=== PATIENT | female | born 1965 | race African-American/Black ===

== ENCOUNTER 2019-05-07 12:14 | Inpatient (IN) | payer OTHER ==
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
[2019-05-07 13:45] LABS: BASO % 0.9 % (0-2.0); EOS % 4.5 % (0-4.5); HEMATOCRIT 28.1 % (32.4-45.2); HEMOGLOBIN 8.9 GM/dL (10.7-15.3); LYMPH % 16.7 % (8-40); MCH 21.6 pg (25.7-33.7); MCHC 31.7 g/dl (32.0-36.0); MEAN CELL VOLUME 68.3 fl (80-96); MEAN PLT VOLUME 7.8 fl (7.5-11.1); MONO % 6.9 % (3.8-10.2); PLATELET COUNT 386 K/MM3 (134-434); RBC 4.12 M/mm3 (3.60-5.2); RDW 17.5 % (11.6-15.6); WHITE BLOOD COUNT 8.9 K/mm3 (4.0-10.0)
[2019-05-07] MEDS ORDERED: VANCOMYCIN 1 GM in D5W (PRE-DOCKED) 1,000 MG/250 ML IVPB ONE (13:55)
[2019-05-07] MEDS ORDERED: ACETAMINOPHEN 1000 MG/100 ML VIAL (NON FORMULARY) IVPB ONE (13:55)
[2019-05-07] MEDS ORDERED: ACETAMINOPHEN INJECTION 100 ML IVPB ONE (14:00)
[2019-05-07] MEDS ORDERED: PIPERACILLIN/TAZOB 4.5 GM 4.5 GM/100 ML BAG IVPB ONE (14:01)
[2019-05-07] MEDS ORDERED: VANCOMYCIN 1 GRAM (PRE-DOCKED) 1,000 MG/250 ML BAG IVPB ONE (14:01)
--- NOTE | 2019-05-07 14:08 | PDOC ---
Documentation entered by Tina Soliz SCRIBE, acting as scribe for Ashley Thompson MD. Ashley Thompson MD: This documentation has been prepared by the Heydi huang Nirvannie, SCRIBE, under my direction and personally reviewed by me in its entirety. I confirm that the documentation accurately reflects all work, treatment, procedures, and medical decision making performed by me. Attending Attestation - Resident Resident Name: Michelle West - ED Attending Attestation I have performed the following: I have examined & evaluated the patient, The case was reviewed & discussed with the resident, I agree w/resident's findings & plan, Exceptions are as noted - HPI HPI: 05/07/19 13:50 Agree with resident HPI - Physicial Exam PE: 05/07/19 13:50 Agree with resident exam - Medical Decision Making 05/07/19 13:50 53-year-old female with chronic sacral/gluteal wounds presents the emergency department for admission for IV antibiotics. Patient was found to multiple drug -resistant organisms on her wound cultures. She does not have any systemic signs of infection at this time. We will cover the patient empirically with vancomycin and Zosyn. Per EMR patient has a penicillin allergy, however patient states she was told she had an allergy in childhood but, she has taken ampicillin safely in the past without any reaction. Anticipate admission Heart Score/ECG Review #1 05/07/19 14:05 Twelve-lead EKG was performed and reviewed by me. Normal sinus rhythm, rate 69. Normal axis. No ST elevations. T wave inversions in 3 and V3 with T wave flattening diffusely otherwise.Unable to access previous EKG in our system to compare.
[2019-05-07 14:12] LABS: ANISOCYTOSIS 2+; MACROCYTOSIS 0; PLATELET ESTIMATE NORMAL
[2019-05-07 14:23] LABS: ALBUMIN 2.4 g/dl (3.4-5.0); BILIRUBIN,TOTAL 0.1 mg/dL (0.2-1); CALCIUM 8.7 mg/dL (8.5-10.1); CREATININE 0.5 mg/dL (0.55-1.3); POTASSIUM 4.3 mmol/L (3.5-5.1); TOT PROT 7.4 g/dl (6.4-8.2)
[2019-05-07] MEDS ORDERED: PIPERACILLIN/TAZOB 4.5 GM 4.5 GM in DEXTROSE 5%-WATER 100 ML IVPB SCH (15:00)
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
[2019-05-07] MEDS ORDERED: HYDROmorphone HCL 2 MG TABLET PO PRN (16:38)
[2019-05-07 20:12] VITALS: BMI 34.2
[2019-05-07] MEDS: OXYBUTYNIN CHLORIDE 5 MG TABLET PO SCH (21:10)
[2019-05-08] MEDS ORDERED: diphenhydrAMINE HCL 25 MG CAPSULE (FP) PO PRN (08:28)
--- NOTE | 2019-05-08 08:32 | PN ---
Progress Note (short form) - Note Progress Note: Vital Signs Period Temp Pulse Resp BP Sys/Paul Pulse Ox Last 24 Hr 98.1 F-100.1 F 62-82 14-20 93-113/50-58 96-100 s1s2 rrr lungs cta abd soft non tender large stage 4 ischial decubitus on right, clean with no discharge stage 3 decubitus on left side several skin strippings over gluteal areas due to tape awaiting ID evaluation regarding abx continue maintenance posaconazole for amelia glabrata infection gi/dvt prophylaxis will need PICC, has minimal iv access Problem List - Problems (1) Decubitus ulcer, stage 4 with infection Code(s): L89.94 - PRESSURE ULCER OF UNSPECIFIED SITE, STAGE 4; L08.9 - LOCAL INFECTION OF THE SKIN AND SUBCUTANEOUS TISSUE, UNSP (2) Paraplegia Code(s): G82.20 - PARAPLEGIA, UNSPECIFIED
[2019-05-08 08:53] LABS: BASO % 0.5 % (0-2.0); EOS % 4.8 % (0-4.5); HEMATOCRIT 26.6 % (32.4-45.2); HEMOGLOBIN 8.5 GM/dL (10.7-15.3); LYMPH % 21.7 % (8-40); MCH 21.9 pg (25.7-33.7); MEAN CELL VOLUME 68.4 fl (80-96); MEAN PLT VOLUME 7.5 fl (7.5-11.1); PLATELET COUNT 404 K/MM3 (134-434); RBC 3.89 M/mm3 (3.60-5.2); RDW 17.6 % (11.6-15.6); WHITE BLOOD COUNT 6.6 K/mm3 (4.0-10.0)
[2019-05-08 09:34] LABS: ALBUMIN 2.3 g/dl (3.4-5.0); BILIRUBIN,TOTAL 0.2 mg/dL (0.2-1); BLOOD UREA NITROGEN 9.5 mg/dL (7-18); CALCIUM 8.7 mg/dL (8.5-10.1); CREATININE 0.4 mg/dL (0.55-1.3); POTASSIUM 4.1 mmol/L (3.5-5.1)
[2019-05-08] MEDS: ENOXAPARIN NA (PORCINE) 40 MG/0.4 ML DISP.SYRIN SQ SCH (09:41)
[2019-05-08] MEDS: ASCORBIC ACID 500 MG TABLET (FP) PO SCH (09:41)
[2019-05-08] MEDS: FERROUS SO4 325 MG TABLET (FP) PO SCH (09:41)
[2019-05-08] MEDS: OXYBUTYNIN CHLORIDE 5 MG TABLET PO SCH ×2 (09:41→21:11)
[2019-05-08] MEDS: FAMOTIDINE 20 MG TABLET PO SCH (09:41)
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
[2019-05-08] MEDS ORDERED: DEXTROSE 5%-WATER - 50 ML IVPB ONE ×2 (10:45→17:23)
[2019-05-08] MEDS ORDERED: PIPERACILLIN/TAZOBACTAM 3.375 GM VIAL IVPB ONE ×2 (10:45→17:23)
[2019-05-08] MEDS: PIPERACILLIN/TAZOB 3.375 GM 3.375 GM in DEXTROSE 5%-WATER - 50 ML IVPB SCH ×2 (10:59→17:31)
[2019-05-08 11:57] LABS: ERYTHROCYTE SEDIMENTATION RATE 108 mm/hr (0-30)
--- NOTE | 2019-05-08 13:21 | EKG ---
Test Reason : Blood Pressure : / mmHG Vent. Rate : 069 BPM Atrial Rate : 069 BPM P-R Int : 140 ms QRS Dur : 080 ms QT Int : 364 ms P-R-T Axes : 047 -01 007 degrees QTc Int : 390 ms NORMAL SINUS RHYTHM CANNOT RULE OUT INFERIOR INFARCT , AGE UNDETERMINED ABNORMAL ECG Confirmed by JENIFER GARRISON MD ([id number]) on 05/08/2019 1:21:10 PM Referred By: Confirmed By:JENIFER GARRISON MD
[2019-05-08] MEDS: VANCOMYCIN HCL 1,500 MG in DEXTROSE 5%-WATER - 500 ML IVPB SCH (14:05)
[2019-05-08] MEDS: AMINO ACIDS/PROTEIN HYDROLYS 30 ML LIQUID.PKT PO SCH (14:05)
[2019-05-08] MEDS: POTASSIUM CHLORIDE ORAL LIQUID 20 MEQ/15 ML PO SCH (21:11)
[2019-05-09] MEDS ORDERED: PIPERACILLIN/TAZOBACTAM 3.375 GM VIAL IVPB ONE ×3 (00:55→17:08)
[2019-05-09] MEDS ORDERED: DEXTROSE 5%-WATER - 50 ML IVPB ONE ×3 (00:56→17:08)
[2019-05-09] MEDS: PIPERACILLIN/TAZOB 3.375 GM 3.375 GM in DEXTROSE 5%-WATER - 50 ML IVPB SCH ×3 (01:12→17:15)
[2019-05-09] MEDS ORDERED: PT OWN MED DRAWER 7, Y5N ONE ×2 (08:36→12:06)
[2019-05-09] MEDS: POSACONAZOLE PO SCH (08:39)
--- NOTE | 2019-05-09 09:19 | PN ---
Progress Note (short form) - Note Progress Note: Vital Signs Period Temp Pulse Resp BP Sys/Paul Pulse Ox Last 24 Hr 98.2 F-99.4 F 57-80 18-20 112-129/62-72 s1s2 rrr lungs cta abd soft non tender large stage 4 ischial decubitus on right, clean with no discharge stage 3 decubitus on left side several skin strippings over gluteal areas due to tape Active Medications Acetaminophen (Tylenol -) 650 mg PO Q6H PRN PRN Reason: FEVER Amino Acids (Prosource No Carb Liquid Pkt) 30 ml PO DAILY [facility] Last Admin: 05/08/19 14:05 Dose: 30 ml Ascorbic Acid (Vitamin C -) 500 mg PO DAILY [facility] Last Admin: 05/08/19 09:41 Dose: 500 mg Diphenhydramine HCl (Benadryl -) 25 mg PO Q6H PRN PRN Reason: FOR ITCHING Last Admin: 05/08/19 09:04 Dose: 25 mg Enoxaparin Sodium (Lovenox -) 40 mg SQ DAILY [facility] Last Admin: 05/08/19 09:41 Dose: 40 mg Famotidine (Pepcid -) 20 mg PO DAILY [facility] Last Admin: 05/08/19 09:41 Dose: 20 mg Ferrous Sulfate (Feosol -) 325 mg PO DAILY [facility] Last Admin: 05/08/19 09:41 Dose: 325 mg Hydromorphone HCl (Dilaudid -) 2 mg PO Q6H PRN PRN Reason: PAIN LEVEL 7 - 10 Last Admin: 05/07/19 21:19 Dose: 2 mg Vancomycin HCl 1,500 mg/ (Dextrose) 500 mls @ 250 mls/hr IVPB Q24H [facility]; Protocol Last Admin: 05/08/19 14:05 Dose: 250 mls/hr Piperacillin Sod/Tazobactam (Sod 3.375 gm/ Dextrose) 50 mls @ 100 mls/hr IVPB Q8H-IV [facility]; Protocol Last Admin: 05/09/19 01:12 Dose: 100 mls/hr (Posaconazole 120 Mg )Patient's Own Medication (Non- Formulary) 120 mg PO DAILY @0800 [facility] Last Admin: 05/09/19 08:39 Dose: 120 mg Oxybutynin Chloride (Ditropan -) 5 mg PO BID [facility] Last Admin: 11/22/19 21:11 Dose: 5 mg Potassium Chloride (Potassium Chloride Oral Liquid) 20 meq PO BID [facility] Last Admin: 05/08/19 21:11 Dose: 20 meq consult appreciated iv abx [id number] planned for now offers no complaints continue wound care will get plastic surgical evaluation Problem List - Problems (1) Decubitus ulcer, stage 4 with infection Code(s): L89.94 - PRESSURE ULCER OF UNSPECIFIED SITE, STAGE 4; L08.9 - LOCAL INFECTION OF THE SKIN AND SUBCUTANEOUS TISSUE, UNSP (2) Paraplegia Code(s): G82.20 - PARAPLEGIA, UNSPECIFIED
[2019-05-09] MEDS: POTASSIUM CHLORIDE ORAL LIQUID 20 MEQ/15 ML PO SCH ×2 (10:12→21:54)
[2019-05-09] MEDS: FAMOTIDINE 20 MG TABLET PO SCH (10:12)
[2019-05-09] MEDS: FERROUS SO4 325 MG TABLET (FP) PO SCH (10:12)
[2019-05-09] MEDS: OXYBUTYNIN CHLORIDE 5 MG TABLET PO SCH ×2 (10:12→21:54)
[2019-05-09] MEDS: ASCORBIC ACID 500 MG TABLET (FP) PO SCH (10:12)
[2019-05-09] MEDS: ENOXAPARIN NA (PORCINE) 40 MG/0.4 ML DISP.SYRIN SQ SCH (10:12)
[2019-05-09] MEDS: AMINO ACIDS/PROTEIN HYDROLYS 30 ML LIQUID.PKT PO SCH (10:12)
[2019-05-09] MEDS: VANCOMYCIN HCL 1,500 MG in DEXTROSE 5%-WATER - 500 ML IVPB SCH (12:13)
--- NOTE | 2019-05-09 18:05 | PN ---
Progress Note, Physician History of Present Illness: Pt is alert and fully responsive. No rash noted on Zosyn. Has occasional generalized tingling sensation but states it started a couple of weekss ago. Has no specific complaints and is afebrile. - Current Medication List Current Medications: Active Medications Acetaminophen (Tylenol -) 650 mg PO Q6H PRN PRN Reason: FEVER Amino Acids (Prosource No Carb Liquid Pkt) 30 ml PO DAILY [facility] Last Admin: 05/09/19 10:12 Dose: 30 ml Ascorbic Acid (Vitamin C -) 500 mg PO DAILY [facility] Last Admin: 05/09/19 10:12 Dose: 500 mg Diphenhydramine HCl (Benadryl -) 25 mg PO Q6H PRN PRN Reason: FOR ITCHING Last Admin: 05/08/19 09:04 Dose: 25 mg Enoxaparin Sodium (Lovenox -) 40 mg SQ DAILY [facility] Last Admin: 05/09/19 10:12 Dose: 40 mg Famotidine (Pepcid -) 20 mg PO DAILY [facility] Last Admin: 05/09/19 10:12 Dose: 20 mg Ferrous Sulfate (Feosol -) 325 mg PO DAILY [facility] Last Admin: 05/09/19 10:12 Dose: 325 mg Hydromorphone HCl (Dilaudid -) 2 mg PO Q6H PRN PRN Reason: PAIN LEVEL 7 - 10 Last Admin: 05/07/19 21:19 Dose: 2 mg Vancomycin HCl 1,500 mg/ (Dextrose) 500 mls @ 250 mls/hr IVPB Q24H [facility]; Protocol Last Admin: 05/09/19 12:13 Dose: 250 mls/hr Piperacillin Sod/Tazobactam (Sod 3.375 gm/ Dextrose) 50 mls @ 100 mls/hr IVPB Q8H-IV [facility]; Protocol Last Admin: 05/09/19 17:15 Dose: 100 mls/hr (Posaconazole 120 Mg )Patient's Own Medication (Non- Formulary) 120 mg PO DAILY @0800 [facility] Last Admin: 05/09/19 08:39 Dose: 120 mg Oxybutynin Chloride (Ditropan -) 5 mg PO BID [facility] Last Admin: 05/09/19 10:12 Dose: 5 mg Potassium Chloride (Potassium Chloride Oral Liquid) 20 meq PO BID [facility] Last Admin: 05/09/19 10:12 Dose: 20 meq - Objective Vital Signs: Vital Signs Temperature 98.4 F 05/09/19 08:00 Pulse Rate 65 05/09/19 08:00 Respiratory Rate 18 05/09/19 08:00 Blood Pressure 110/60 05/09/19 08:00 O2 Sat by Pulse Oximetry (%) 98 05/08/19 09:00 Constitutional: Yes: No Distress, Calm Eyes: Yes: Conjunctiva Clear Cardiovascular: Yes: Tachycardia Respiratory: Yes: CTA Bilaterally Gastrointestinal: Yes: Normal Bowel Sounds, Soft Genitourinary: Yes: Sharp Present Wound/Incision: Yes: Dressing Dry and Intact (b/l ischial - St IV on Rt, St III on Lt) Neurological: Yes: Alert, Oriented, Other (paraplegia) Labs: CBC, BMP 05/08/19 07:50 05/08/19 07:50 Microbiology 05/07/19 13:55 Blood - Peripheral Venous Blood Culture - Preliminary NO GROWTH OBTAINED AFTER 48 HOURS, INCUBATION TO CONTINUE FOR 3 DAYS. 05/07/19 13:30 Blood - Peripheral Venous Blood Culture - Preliminary NO GROWTH OBTAINED AFTER 48 HOURS, INCUBATION TO CONTINUE FOR 3 DAYS. Problem List - Problems (1) Decubitus ulcer, stage 4 with infection Code(s): L89.94 - PRESSURE ULCER OF UNSPECIFIED SITE, STAGE 4; L08.9 - LOCAL INFECTION OF THE SKIN AND SUBCUTANEOUS TISSUE, UNSP (2) Paraplegia Code(s): G82.20 - PARAPLEGIA, UNSPECIFIED Assessment/Plan B/L ischial DU infection Paraplegia Hx of Spinal abscess s/p hardware removal, fusion Hx of Fungemia -- recent wound cultures reviewed -- continue Zosyn/Vancomycin for now, continue monitor for signs of allergic reaction with Zosyn -- Vancomycin trough prior to 4th dose, monitor renal function -- Plastics eval for possible graft -- needs offloading, continue wound care
[2019-05-10] MEDS ORDERED: PIPERACILLIN/TAZOBACTAM 3.375 GM VIAL IVPB ONE ×3 (01:20→17:29)
[2019-05-10] MEDS ORDERED: DEXTROSE 5%-WATER - 50 ML IVPB ONE ×3 (01:21→17:29)
[2019-05-10] MEDS: PIPERACILLIN/TAZOB 3.375 GM 3.375 GM in DEXTROSE 5%-WATER - 50 ML IVPB SCH ×3 (01:45→17:33)
--- NOTE | 2019-05-10 09:25 | PN ---
Progress Note (short form) - Note Progress Note: CBC, BMP 05/08/19 07:50 05/08/19 07:50 Vital Signs Period Temp Pulse Resp BP Sys/Paul Pulse Ox Last 24 Hr 97.8 F-98.1 F 60-78 17-20 92-135/48-75 98 s1s2 rrr lungs cta abd soft non tender large stage 4 ischial decubitus on right, clean with no discharge stage 3 decubitus on left side several skin strippings over gluteal areas due to tape Active Medications Acetaminophen (Tylenol -) 650 mg PO Q6H PRN PRN Reason: FEVER Amino Acids (Prosource No Carb Liquid Pkt) 30 ml PO DAILY [facility] Last Admin: 05/09/19 10:12 Dose: 30 ml Ascorbic Acid (Vitamin C -) 500 mg PO DAILY [facility] Last Admin: 05/09/19 10:12 Dose: 500 mg Collagenase (Santyl -) 1 applic TP DAILY [facility]; Protocol Diphenhydramine HCl (Benadryl -) 25 mg PO Q6H PRN PRN Reason: FOR ITCHING Last Admin: 05/08/19 09:04 Dose: 25 mg Enoxaparin Sodium (Lovenox -) 40 mg SQ DAILY [facility] Last Admin: 05/09/19 10:12 Dose: 40 mg Famotidine (Pepcid -) 20 mg PO DAILY [facility] Last Admin: 05/09/19 10:12 Dose: 20 mg Ferrous Sulfate (Feosol -) 325 mg PO DAILY [facility] Last Admin: 05/09/19 10:12 Dose: 325 mg Hydromorphone HCl (Dilaudid -) 2 mg PO Q6H PRN PRN Reason: PAIN LEVEL 7 - 10 Last Admin: 05/07/19 21:19 Dose: 2 mg Vancomycin HCl 1,500 mg/ (Dextrose) 500 mls @ 250 mls/hr IVPB Q24H [facility]; Protocol Last Admin: 05/09/19 12:13 Dose: 250 mls/hr Piperacillin Sod/Tazobactam (Sod 3.375 gm/ Dextrose) 50 mls @ 100 mls/hr IVPB Q8H-IV [facility]; Protocol Last Admin: 05/10/19 01:45 Dose: 100 mls/hr (Posaconazole 120 Mg )Patient's Own Medication (Non- Formulary) 120 mg PO DAILY @0800 [facility] Last Admin: 05/09/19 08:39 Dose: 120 mg Oxybutynin Chloride (Ditropan -) 5 mg PO BID [facility] Last Admin: 05/09/19 21:54 Dose: 5 mg Potassium Chloride (Potassium Chloride Oral Liquid) 20 meq PO BID [facility] Last Admin: 05/09/19 21:54 Dose: 20 meq right stage 4 gluteal decubitus with acinetobacter and MRSA HTN h/o cabdida glabrata bacteremia h/o PE consult appreciated iv abx [id number] planned for now offers no complaints continue wound care will get plastic surgical evaluation Problem List - Problems (1) Decubitus ulcer, stage 4 with infection Code(s): L89.94 - PRESSURE ULCER OF UNSPECIFIED SITE, STAGE 4; L08.9 - LOCAL INFECTION OF THE SKIN AND SUBCUTANEOUS TISSUE, UNSP (2) Paraplegia Code(s): G82.20 - PARAPLEGIA, UNSPECIFIED
[2019-05-10] MEDS ORDERED: PT OWN MED DRAWER 7, Y5N ONE ×2 (09:39→14:15)
[2019-05-10] MEDS: OXYBUTYNIN CHLORIDE 5 MG TABLET PO SCH ×2 (09:52→21:51)
[2019-05-10] MEDS: FERROUS SO4 325 MG TABLET (FP) PO SCH (09:52)
[2019-05-10] MEDS: FAMOTIDINE 20 MG TABLET PO SCH (09:52)
[2019-05-10] MEDS: POTASSIUM CHLORIDE ORAL LIQUID 20 MEQ/15 ML PO SCH ×2 (09:52→21:51)
[2019-05-10] MEDS: AMINO ACIDS/PROTEIN HYDROLYS 30 ML LIQUID.PKT PO SCH (09:52)
[2019-05-10] MEDS: ASCORBIC ACID 500 MG TABLET (FP) PO SCH (09:52)
[2019-05-10] MEDS: COLLAGENASE CLOSTRIDIUM HIST. 30 GRAMS TUBE TP SCH (09:52)
[2019-05-10] MEDS: ENOXAPARIN NA (PORCINE) 40 MG/0.4 ML DISP.SYRIN SQ SCH (09:52)
[2019-05-10] MEDS: POSACONAZOLE PO SCH (09:53)
[2019-05-10] MEDS: VANCOMYCIN HCL 1,500 MG in DEXTROSE 5%-WATER - 500 ML IVPB SCH (14:20)
[2019-05-10] MEDS: ACETAMINOPHEN 325 MG TABLET (FP) PO PRN (17:39)
--- NOTE | 2019-05-10 19:22 | PN ---
Progress Note, Physician History of Present Illness: Pt states she feels well. Tolerating antibiotics, no rash or SOB. Remains afebrile. - Current Medication List Current Medications: Active Medications Acetaminophen (Tylenol -) 650 mg PO Q6H PRN PRN Reason: FEVER Last Admin: 05/10/19 17:39 Dose: 650 mg Amino Acids (Prosource No Carb Liquid Pkt) 30 ml PO DAILY [facility] Last Admin: 05/10/19 09:52 Dose: 30 ml Ascorbic Acid (Vitamin C -) 500 mg PO DAILY [facility] Last Admin: 05/10/19 09:52 Dose: 500 mg Collagenase (Santyl -) 1 applic TP DAILY [facility]; Protocol Last Admin: 05/10/19 09:52 Dose: 1 applic Diphenhydramine HCl (Benadryl -) 25 mg PO Q6H PRN PRN Reason: FOR ITCHING Last Admin: 05/08/19 09:04 Dose: 25 mg Enoxaparin Sodium (Lovenox -) 40 mg SQ DAILY [facility] Last Admin: 05/10/19 09:52 Dose: 40 mg Famotidine (Pepcid -) 20 mg PO DAILY [facility] Last Admin: 05/10/19 09:52 Dose: 20 mg Ferrous Sulfate (Feosol -) 325 mg PO DAILY [facility] Last Admin: 05/10/19 09:52 Dose: 325 mg Hydromorphone HCl (Dilaudid -) 2 mg PO Q6H PRN PRN Reason: PAIN LEVEL 7 - 10 Last Admin: 05/07/19 21:19 Dose: 2 mg Vancomycin HCl 1,500 mg/ (Dextrose) 500 mls @ 250 mls/hr IVPB Q24H [facility]; Protocol Last Admin: 05/10/19 14:20 Dose: 250 mls/hr Piperacillin Sod/Tazobactam (Sod 3.375 gm/ Dextrose) 50 mls @ 100 mls/hr IVPB Q8H-IV [facility]; Protocol Last Admin: 05/10/19 17:33 Dose: 100 mls/hr (Posaconazole 120 Mg )Patient's Own Medication (Non- Formulary) 120 mg PO DAILY @0800 [facility] Last Admin: 05/10/19 09:53 Dose: 120 mg Oxybutynin Chloride (Ditropan -) 5 mg PO BID [facility] Last Admin: 05/10/19 09:52 Dose: 5 mg Potassium Chloride (Potassium Chloride Oral Liquid) 20 meq PO BID [facility] Last Admin: 05/10/19 09:52 Dose: 20 meq - Objective Vital Signs: Vital Signs Temperature 98.3 F 05/10/19 18:52 Pulse Rate 69 05/10/19 18:52 Respiratory Rate 20 05/10/19 18:52 Blood Pressure 109/71 05/10/19 18:52 O2 Sat by Pulse Oximetry (%) 98 05/10/19 09:00 Constitutional: Yes: No Distress, Calm Cardiovascular: Yes: Regular Rate and Rhythm Respiratory: Yes: Regular Gastrointestinal: Yes: Normal Bowel Sounds, Soft Extremities: Yes: WNL Wound/Incision: Yes: Dressing Dry and Intact Neurological: Yes: Alert, Oriented Labs: CBC, BMP 05/08/19 07:50 05/08/19 07:50 Microbiology 05/07/19 13:55 Blood - Peripheral Venous Blood Culture - Preliminary NO GROWTH OBTAINED AFTER 72 HOURS, INCUBATION TO CONTINUE FOR 2 DAYS. 05/07/19 13:30 Blood - Peripheral Venous Blood Culture - Preliminary NO GROWTH OBTAINED AFTER 72 HOURS, INCUBATION TO CONTINUE FOR 2 DAYS. Problem List - Problems (1) Decubitus ulcer, stage 4 with infection Code(s): L89.94 - PRESSURE ULCER OF UNSPECIFIED SITE, STAGE 4; L08.9 - LOCAL INFECTION OF THE SKIN AND SUBCUTANEOUS TISSUE, UNSP (2) Paraplegia Code(s): G82.20 - PARAPLEGIA, UNSPECIFIED Assessment/Plan B/L ischial DU infection Paraplegia Hx of Spinal abscess s/p hardware removal, fusion Hx of Fungemia -- wound cultures: MRSA, E.faecalis, Proteus, Acinetobacter -- continue Zosyn/Vancomycin for now -- Vancomycin trough prior to 4th dose, monitor renal function -- Plastics eval pending -- continue wound care, turning
[2019-05-11] MEDS ORDERED: PIPERACILLIN/TAZOBACTAM 3.375 GM VIAL IVPB ONE ×3 (01:09→15:40)
[2019-05-11] MEDS ORDERED: DEXTROSE 5%-WATER - 50 ML IVPB ONE ×3 (01:10→15:40)
[2019-05-11] MEDS: PIPERACILLIN/TAZOB 3.375 GM 3.375 GM in DEXTROSE 5%-WATER - 50 ML IVPB SCH ×3 (01:29→18:14)
[2019-05-11] MEDS: ACETAMINOPHEN 325 MG TABLET (FP) PO PRN ×2 (06:19→18:19)
--- NOTE | 2019-05-11 08:02 | PN ---
Progress Note (short form) - Note Progress Note: CBC, BMP 05/08/19 07:50 05/08/19 07:50 Vital Signs Period Temp Pulse Resp BP Sys/Paul Pulse Ox Last 24 Hr 98.0 F-100.4 F 68-83 18-20 106-130/52-74 98-98 s1s2 rrr lungs cta abd soft non tender large stage 4 ischial decubitus on right, clean with no discharge stage 3 decubitus on left side several skin strippings over gluteal areas due to tape right stage 4 gluteal decubitus with acinetobacter and MRSA HTN h/o cabdida glabrata bacteremia h/o PE consult appreciated iv abx [id number] planned for now vanco through and labs tomorrow offers no complaints continue wound care will get plastic surgical evaluation Problem List - Problems (1) Decubitus ulcer, stage 4 with infection Code(s): L89.94 - PRESSURE ULCER OF UNSPECIFIED SITE, STAGE 4; L08.9 - LOCAL INFECTION OF THE SKIN AND SUBCUTANEOUS TISSUE, UNSP (2) Paraplegia Code(s): G82.20 - PARAPLEGIA, UNSPECIFIED
[2019-05-11] MEDS: FERROUS SO4 325 MG TABLET (FP) PO SCH (10:50)
[2019-05-11] MEDS: FAMOTIDINE 20 MG TABLET PO SCH (10:50)
[2019-05-11] MEDS: OXYBUTYNIN CHLORIDE 5 MG TABLET PO SCH ×2 (10:50→21:47)
[2019-05-11] MEDS: ASCORBIC ACID 500 MG TABLET (FP) PO SCH (10:50)
[2019-05-11] MEDS: POTASSIUM CHLORIDE ORAL LIQUID 20 MEQ/15 ML PO SCH ×2 (10:51→21:47)
[2019-05-11] MEDS: ENOXAPARIN NA (PORCINE) 40 MG/0.4 ML DISP.SYRIN SQ SCH (10:51)
[2019-05-11] MEDS: POSACONAZOLE PO SCH (10:53)
[2019-05-11] MEDS: AMINO ACIDS/PROTEIN HYDROLYS 30 ML LIQUID.PKT PO SCH (10:53)
[2019-05-11] MEDS: COLLAGENASE CLOSTRIDIUM HIST. 30 GRAMS TUBE TP SCH (10:53)
--- NOTE | 2019-05-11 13:18 | PN ---
Progress Note, Physician History of Present Illness: stable no complaints awaiting plastics to see the patient - Current Medication List Current Medications: Active Medications Acetaminophen (Tylenol -) 650 mg PO Q6H PRN PRN Reason: FEVER Last Admin: 05/11/19 06:19 Dose: 650 mg Amino Acids (Prosource No Carb Liquid Pkt) 30 ml PO DAILY [facility] Last Admin: 05/11/19 10:53 Dose: 30 ml Ascorbic Acid (Vitamin C -) 500 mg PO DAILY [facility] Last Admin: 05/11/19 10:50 Dose: 500 mg Collagenase (Santyl -) 1 applic TP DAILY [facility]; Protocol Last Admin: 05/11/19 10:53 Dose: 1 applic Diphenhydramine HCl (Benadryl -) 25 mg PO Q6H PRN PRN Reason: FOR ITCHING Last Admin: 05/08/19 09:04 Dose: 25 mg Enoxaparin Sodium (Lovenox -) 40 mg SQ DAILY [facility] Last Admin: 05/11/19 10:51 Dose: 40 mg Famotidine (Pepcid -) 20 mg PO DAILY [facility] Last Admin: 05/11/19 10:50 Dose: 20 mg Ferrous Sulfate (Feosol -) 325 mg PO DAILY [facility] Last Admin: 05/11/19 10:50 Dose: 325 mg Hydromorphone HCl (Dilaudid -) 2 mg PO Q6H PRN PRN Reason: PAIN LEVEL 7 - 10 Last Admin: 05/07/19 21:19 Dose: 2 mg Vancomycin HCl 1,500 mg/ (Dextrose) 500 mls @ 250 mls/hr IVPB Q24H [facility]; Protocol Last Admin: 05/10/19 14:20 Dose: 250 mls/hr Piperacillin Sod/Tazobactam (Sod 3.375 gm/ Dextrose) 50 mls @ 100 mls/hr IVPB Q8H-IV [facility]; Protocol Last Admin: 05/11/19 10:54 Dose: 100 mls/hr (Posaconazole 120 Mg )Patient's Own Medication (Non- Formulary) 120 mg PO DAILY @0800 [facility] Last Admin: 05/11/19 10:53 Dose: 120 mg Oxybutynin Chloride (Ditropan -) 5 mg PO BID [facility] Last Admin: 05/11/19 10:50 Dose: 5 mg Potassium Chloride (Potassium Chloride Oral Liquid) 20 meq PO BID [facility] Last Admin: 05/11/19 10:51 Dose: 20 meq - Objective Vital Signs: Vital Signs Temperature 100.4 F H 05/11/19 06:00 Pulse Rate 79 05/11/19 06:00 Respiratory Rate 20 05/11/19 06:00 Blood Pressure 130/68 05/11/19 06:00 O2 Sat by Pulse Oximetry (%) 98 05/10/19 21:00 Constitutional: Yes: No Distress, Calm Cardiovascular: Yes: S1, S2 Respiratory: Yes: Regular, CTA Bilaterally Gastrointestinal: Yes: Normal Bowel Sounds, Soft Musculoskeletal: Yes: WNL Extremities: Yes: WNL Wound/Incision: Yes: Dressing Dry and Intact Neurological: Yes: Alert, Oriented Psychiatric: Yes: Alert, Oriented Labs: CBC, BMP 05/08/19 07:50 05/08/19 07:50 Assessment/Plan Problem List - Problems (1) Decubitus ulcer, stage 4 with infection Code(s): L89.94 - PRESSURE ULCER OF UNSPECIFIED SITE, STAGE 4; L08.9 - LOCAL INFECTION OF THE SKIN AND SUBCUTANEOUS TISSUE, UNSP (2) Paraplegia Code(s): G82.20 - PARAPLEGIA, UNSPECIFIED Assessment/Plan B/L ischial DU infection Paraplegia Hx of Spinal abscess s/p hardware removal, fusion Hx of Fungemia -- wound cultures: MRSA, E.faecalis, Proteus, Acinetobacter -- continue Zosyn/Vancomycin for now -- Vancomycin trough prior to 4th dose, monitor renal function -- Plastics eval pending -- continue wound care, turning
[2019-05-11] MEDS: VANCOMYCIN HCL 1,500 MG in DEXTROSE 5%-WATER - 500 ML IVPB SCH (14:57)
[2019-05-11] MEDS ORDERED: PT OWN MED DRAWER 7, Y5N ONE (18:04)
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
[2019-05-12] MEDS ORDERED: PIPERACILLIN/TAZOBACTAM 3.375 GM VIAL IVPB ONE ×3 (01:41→16:26)
[2019-05-12] MEDS ORDERED: DEXTROSE 5%-WATER - 50 ML IVPB ONE ×3 (01:42→16:26)
[2019-05-12] MEDS: PIPERACILLIN/TAZOB 3.375 GM 3.375 GM in DEXTROSE 5%-WATER - 50 ML IVPB SCH ×3 (02:05→17:19)
--- NOTE | 2019-05-12 08:35 | PN ---
Progress Note (short form) - Note Progress Note: s1s2 rrr lungs cta abd soft non tender large stage 4 ischial decubitus on right, clean with no discharge stage 4 decubitus on left side several skin strippings over gluteal areas due to tape right stage 4 ischial decubitus with acinetobacter and MRSA HTN h/o cabdida glabrata bacteremia h/o PE consult appreciated iv abx [id number] planned vanco through and labs today offers no complaints appreciated plastic surgical evaluation dc planning in am to snf to complete 2 weeks of iv abx Problem List - Problems (1) Decubitus ulcer, stage 4 with infection Code(s): L89.94 - PRESSURE ULCER OF UNSPECIFIED SITE, STAGE 4; L08.9 - LOCAL INFECTION OF THE SKIN AND SUBCUTANEOUS TISSUE, UNSP (2) Paraplegia Code(s): G82.20 - PARAPLEGIA, UNSPECIFIED
--- NOTE | 2019-05-12 08:37 | DS ---
Physical Examination Vital Signs: Vital Signs Temperature 99.1 F 05/12/19 05:00 Pulse Rate 92 H 05/12/19 05:00 Respiratory Rate 20 05/12/19 05:00 Blood Pressure 140/82 05/12/19 05:00 O2 Sat by Pulse Oximetry (%) 98 05/11/19 21:00 Constitutional: Yes: No Distress, Calm, Obese Eyes: Yes: Conjunctiva Clear, EOM Intact HENT: Yes: Normocephalic Neck: Yes: Trachea Midline Cardiovascular: Yes: Regular Rate and Rhythm Respiratory: Yes: CTA Bilaterally Gastrointestinal: Yes: Normal Bowel Sounds, Soft, Abdomen, Obese Edema: No Peripheral Pulses WNL: Yes Integumentary: Yes: Other (bilateral stage 4 decubiti, clean based, no discharge ) Neurological: Yes: Other (paraplegic) Psychiatric: Yes: WNL Labs: CBC, BMP 05/08/19 07:50 05/08/19 07:50 Discharge Summary Problems reviewed: Yes Reason For Visit: SOFT TISSUE INFECTION Current Active Problems Decubitus ulcer, stage 4 with infection (Acute) Paraplegia (Acute) Hospital Course: right stage 4 ischial decubitus with acinetobacter and MRSA skin infection HTN h/o cabdida glabrata bacteremia h/o PE h/o C.diff iv vanxo and zosyn [id number] planned to complete on May 22 vanco through and labs today appreciated plastic surgical evaluation-if patient is able to regain strength to offload, then will consider flap in future after completing abx course dc planning in am to snf to complete 2 weeks of iv abx Condition: Fair - Instructions Referrals: Courtney Howe MD [Primary Care Provider] - [facility]position[facility] - Home Medications Comprehensive Discharge Medication List: Active Medications Acetaminophen (Tylenol -) 650 mg PO Q6H PRN PRN Reason: FEVER Last Admin: 05/11/19 18:19 Dose: 650 mg Amino Acids (Prosource No Carb Liquid Pkt) 30 ml PO DAILY [facility] Last Admin: 05/11/19 10:53 Dose: 30 ml Ascorbic Acid (Vitamin C -) 500 mg PO DAILY [facility] Last Admin: 05/11/19 10:50 Dose: 500 mg Diphenhydramine HCl (Benadryl -) 25 mg PO Q6H PRN PRN Reason: FOR ITCHING Last Admin: 05/08/19 09:04 Dose: 25 mg Famotidine (Pepcid -) 20 mg PO DAILY [facility] Last Admin: 05/11/19 10:50 Dose: 20 mg Ferrous Sulfate (Feosol -) 325 mg PO DAILY [facility] Last Admin: 05/11/19 10:50 Dose: 325 mg Hydromorphone HCl (Dilaudid -) 2 mg PO Q6H PRN PRN Reason: PAIN LEVEL 7 - 10 Last Admin: 05/07/19 21:19 Dose: 2 mg Vancomycin HCl 1,500 mg/ (Dextrose) 500 mls @ 250 mls/hr IVPB Q24H [facility]; Protocol Last Admin: 05/11/19 14:57 Dose: 250 mls/hr Piperacillin Sod/Tazobactam (Sod 3.375 gm/ Dextrose) 50 mls @ 100 mls/hr IVPB Q8H-IV [facility]; Protocol Last Admin: 05/12/19 02:05 Dose: 100 mls/hr Mupirocin (Bactroban 2% Ointment -) 1 applic TP BID [facility] (Posaconazole 120 Mg )Patient's Own Medication (Non- Formulary) 120 mg PO DAILY @0800 [facility] Last Admin: 05/11/19 10:53 Dose: 120 mg Oxybutynin Chloride (Ditropan -) 5 mg PO BID [facility] Last Admin: 05/11/19 21:47 Dose: 5 mg Potassium Chloride (Potassium Chloride Oral Liquid) 20 meq PO BID [facility] Last Admin: 05/11/19 21:47 Dose: 20 meq Sodium Hypochlorite (Dakin's Solution 0.25% (Half-Strength) -) 1 applic TP DAILY [facility]
[2019-05-12] MEDS: ASCORBIC ACID 500 MG TABLET (FP) PO SCH (09:07)
[2019-05-12] MEDS: OXYBUTYNIN CHLORIDE 5 MG TABLET PO SCH ×2 (09:07→22:14)
[2019-05-12] MEDS: AMINO ACIDS/PROTEIN HYDROLYS 30 ML LIQUID.PKT PO SCH (09:07)
[2019-05-12] MEDS: POTASSIUM CHLORIDE ORAL LIQUID 20 MEQ/15 ML PO SCH ×2 (09:07→22:14)
[2019-05-12] MEDS: POSACONAZOLE PO SCH (09:07)
[2019-05-12] MEDS: FAMOTIDINE 20 MG TABLET PO SCH (09:07)
[2019-05-12] MEDS: FERROUS SO4 325 MG TABLET (FP) PO SCH (09:07)
--- NOTE | 2019-05-12 11:43 | PN ---
Progress Note, Physician - Current Medication List Current Medications: Active Medications Acetaminophen (Tylenol -) 650 mg PO Q6H PRN PRN Reason: FEVER Last Admin: 05/11/19 18:19 Dose: 650 mg Amino Acids (Prosource No Carb Liquid Pkt) 30 ml PO DAILY [facility] Last Admin: 05/12/19 09:07 Dose: 30 ml Ascorbic Acid (Vitamin C -) 500 mg PO DAILY [facility] Last Admin: 05/12/19 09:07 Dose: 500 mg Diphenhydramine HCl (Benadryl -) 25 mg PO Q6H PRN PRN Reason: FOR ITCHING Last Admin: 05/08/19 09:04 Dose: 25 mg Famotidine (Pepcid -) 20 mg PO DAILY [facility] Last Admin: 05/12/19 09:07 Dose: 20 mg Ferrous Sulfate (Feosol -) 325 mg PO DAILY [facility] Last Admin: 05/12/19 09:07 Dose: 325 mg Hydromorphone HCl (Dilaudid -) 2 mg PO Q6H PRN PRN Reason: PAIN LEVEL 7 - 10 Last Admin: 05/07/19 21:19 Dose: 2 mg Vancomycin HCl 1,500 mg/ (Dextrose) 500 mls @ 250 mls/hr IVPB Q24H [facility]; Protocol Last Admin: 05/11/19 14:57 Dose: 250 mls/hr Piperacillin Sod/Tazobactam (Sod 3.375 gm/ Dextrose) 50 mls @ 100 mls/hr IVPB Q8H-IV [facility]; Protocol Last Admin: 05/12/19 09:08 Dose: 100 mls/hr Mupirocin (Bactroban 2% Ointment -) 1 applic TP BID [facility] (Posaconazole 120 Mg )Patient's Own Medication (Non- Formulary) 120 mg PO DAILY @0800 [facility] Last Admin: 05/12/19 09:07 Dose: 120 mg Oxybutynin Chloride (Ditropan -) 5 mg PO BID [facility] Last Admin: 05/12/19 09:07 Dose: 5 mg Potassium Chloride (Potassium Chloride Oral Liquid) 20 meq PO BID [facility] Last Admin: 05/12/19 09:07 Dose: 20 meq Sodium Hypochlorite (Dakin's Solution 0.25% (Half-Strength) -) 1 applic TP DAILY [facility] - Objective Vital Signs: Vital Signs Temperature 99.1 F 05/12/19 05:00 Pulse Rate 92 H 05/12/19 05:00 Respiratory Rate 20 05/12/19 05:00 Blood Pressure 140/82 05/12/19 05:00 O2 Sat by Pulse Oximetry (%) 98 05/11/19 21:00 Labs: CBC, BMP 05/08/19 07:50 05/08/19 07:50
--- NOTE | 2019-05-12 12:04 | PN ---
Progress Note (short form) - Note Progress Note: Pt being seen and treated for her decubitus ulcer by Dr. Flynn. She does see Dr. Rocha in the wound clinic and was referred to the hospital for admission, positive wound cultures-MRSA. Spoke with Dr. Jenkins and care to be managed by Dr. Flynn for her ulcers. Consult for Dr. Sigala cancelled.
[2019-05-12 12:58] LABS: BASO % 0.5 % (0-2.0); EOS % 4.4 % (0-4.5); HEMATOCRIT 28.4 % (32.4-45.2); HEMOGLOBIN 8.9 GM/dL (10.7-15.3); LYMPH % 21.9 % (8-40); MCH 21.5 pg (25.7-33.7); MCHC 31.5 g/dl (32.0-36.0); MEAN CELL VOLUME 68.4 fl (80-96); MEAN PLT VOLUME 7.3 fl (7.5-11.1); MONO % 9.6 % (3.8-10.2); NEUT % 63.6 % (42.8-82.8); PLATELET COUNT 387 K/MM3 (134-434); RBC 4.16 M/mm3 (3.60-5.2); RDW 18.1 % (11.6-15.6); WHITE BLOOD COUNT 7.9 K/mm3 (4.0-10.0)
[2019-05-12] MEDS ORDERED: PT OWN MED DRAWER 7, Y5N ONE (12:59)
[2019-05-12 13:18] LABS: INR 1.28 (0.83-1.09); PROTHROMBIN TIME (PATIENT) 15.1 SEC (9.7-13.0)
[2019-05-12 13:31] LABS: ALBUMIN 2.5 g/dl (3.4-5.0); BILIRUBIN,TOTAL 0.4 mg/dL (0.2-1); BLOOD UREA NITROGEN 9.6 mg/dL (7-18); CALCIUM 8.8 mg/dL (8.5-10.1); CREATININE 0.5 mg/dL (0.55-1.3); POTASSIUM 4.3 mmol/L (3.5-5.1); TOT PROT 7.4 g/dl (6.4-8.2)
[2019-05-12] MEDS: VANCOMYCIN HCL 1,500 MG in DEXTROSE 5%-WATER - 500 ML IVPB SCH (13:37)
[2019-05-12] MEDS: MUPIROCIN 2% TOPICAL OINTMENT 22 GM TUBE TP SCH ×2 (13:43→22:14)
[2019-05-12] MEDS: SODIUM HYPOCHLORITE 0.25%- 473 ML BULK BOTTLE TP SCH (13:44)
[2019-05-12 13:59] LABS: ANISOCYTOSIS 2+; PLATELET ESTIMATE NORMAL
[2019-05-12] MEDS: ACETAMINOPHEN 325 MG TABLET (FP) PO PRN (16:49)
[2019-05-13] MEDS ORDERED: PIPERACILLIN/TAZOBACTAM 3.375 GM VIAL IVPB ONE ×2 (01:08→09:44)
[2019-05-13] MEDS ORDERED: DEXTROSE 5%-WATER - 50 ML IVPB ONE ×2 (01:09→09:44)
[2019-05-13] MEDS: PIPERACILLIN/TAZOB 3.375 GM 3.375 GM in DEXTROSE 5%-WATER - 50 ML IVPB SCH ×2 (02:09→09:51)
--- NOTE | 2019-05-13 08:24 | PN ---
Progress Note (short form) - Note Progress Note: Vital Signs Period Temp Pulse Resp BP Sys/Paul Pulse Ox Last 24 Hr 97.9 F-98.6 F 67-81 20-20 98-122/50-67 98-100 s1s2 rrr lungs cta abd soft non tender large stage 4 ischial decubitus on right, clean with no discharge stage 4 decubitus on left side several skin strippings over gluteal areas due to tape right stage 4 ischial decubitus with acinetobacter and MRSA HTN h/o cabdida glabrata bacteremia h/o PE consult appreciated iv abx [id number] planned offers no complaints appreciated plastic surgical evaluation dc planning today to snf to complete 2 weeks of iv abx PT/OT for upper body strengthening Problem List - Problems (1) Decubitus ulcer, stage 4 with infection Code(s): L89.94 - PRESSURE ULCER OF UNSPECIFIED SITE, STAGE 4; L08.9 - LOCAL INFECTION OF THE SKIN AND SUBCUTANEOUS TISSUE, UNSP (2) Paraplegia Code(s): G82.20 - PARAPLEGIA, UNSPECIFIED
[2019-05-13] MEDS ORDERED: PT OWN MED DRAWER 7, Y5N ONE (09:43)
[2019-05-13] MEDS: AMINO ACIDS/PROTEIN HYDROLYS 30 ML LIQUID.PKT PO SCH (09:51)
[2019-05-13] MEDS: FERROUS SO4 325 MG TABLET (FP) PO SCH (09:51)
[2019-05-13] MEDS: ASCORBIC ACID 500 MG TABLET (FP) PO SCH (09:51)
[2019-05-13] MEDS: FAMOTIDINE 20 MG TABLET PO SCH (09:51)
[2019-05-13] MEDS: POSACONAZOLE PO SCH (09:52)
[2019-05-13] MEDS: POTASSIUM CHLORIDE ORAL LIQUID 20 MEQ/15 ML PO SCH (09:52)
[2019-05-13] MEDS: OXYBUTYNIN CHLORIDE 5 MG TABLET PO SCH (09:52)
[2019-05-13] MEDS: SODIUM HYPOCHLORITE 0.25%- 473 ML BULK BOTTLE TP SCH (09:53)
[2019-05-13] MEDS: MUPIROCIN 2% TOPICAL OINTMENT 22 GM TUBE TP SCH (09:53)
--- NOTE | 2019-05-13 11:33 | PN ---
Progress Note, Physician - Current Medication List Current Medications: Active Medications Acetaminophen (Tylenol -) 650 mg PO Q6H PRN PRN Reason: FEVER Last Admin: 05/12/19 16:49 Dose: 650 mg Amino Acids (Prosource No Carb Liquid Pkt) 30 ml PO DAILY [facility] Last Admin: 05/13/19 09:51 Dose: 30 ml Ascorbic Acid (Vitamin C -) 500 mg PO DAILY [facility] Last Admin: 05/13/19 09:51 Dose: 500 mg Diphenhydramine HCl (Benadryl -) 25 mg PO Q6H PRN PRN Reason: FOR ITCHING Last Admin: 05/08/19 09:04 Dose: 25 mg Famotidine (Pepcid -) 20 mg PO DAILY [facility] Last Admin: 05/13/19 09:51 Dose: 20 mg Ferrous Sulfate (Feosol -) 325 mg PO DAILY [facility] Last Admin: 05/13/19 09:51 Dose: 325 mg Hydromorphone HCl (Dilaudid -) 2 mg PO Q6H PRN PRN Reason: PAIN LEVEL 7 - 10 Last Admin: 05/07/19 21:19 Dose: 2 mg Vancomycin HCl 1,500 mg/ (Dextrose) 500 mls @ 250 mls/hr IVPB Q24H [facility]; Protocol Last Admin: 05/12/19 13:37 Dose: 250 mls/hr Piperacillin Sod/Tazobactam (Sod 3.375 gm/ Dextrose) 50 mls @ 100 mls/hr IVPB Q8H-IV [facility]; Protocol Last Admin: 05/13/19 09:51 Dose: 100 mls/hr Mupirocin (Bactroban 2% Ointment -) 1 applic TP BID [facility] Last Admin: 05/13/19 09:53 Dose: 1 applic (Posaconazole 120 Mg )Patient's Own Medication (Non- Formulary) 120 mg PO DAILY @0800 [facility] Last Admin: 05/13/19 09:52 Dose: 120 mg Oxybutynin Chloride (Ditropan -) 5 mg PO BID [facility] Last Admin: 05/13/19 09:52 Dose: 5 mg Potassium Chloride (Potassium Chloride Oral Liquid) 20 meq PO BID [facility] Last Admin: 05/13/19 09:52 Dose: 20 meq Sodium Hypochlorite (Dakin's Solution 0.25% (Half-Strength) -) 1 applic TP DAILY [facility] Last Admin: 05/13/19 09:53 Dose: 1 applic - Objective Vital Signs: Vital Signs Temperature 98.1 F 05/13/19 06:00 Pulse Rate 81 05/13/19 06:00 Respiratory Rate 20 05/13/19 06:00 Blood Pressure 122/50 L 05/13/19 06:00 O2 Sat by Pulse Oximetry (%) 100 05/12/19 21:00 Labs: CBC, BMP 05/12/19 12:22 05/12/19 12:22 INR, PTT INR 1.28 (0.83-1.09) H 05/12/19 12:22
[2019-05-13 11:46] VITALS: BP 109/58; PULSE 67; TEMP 98.5
[2019-05-13] MEDS: VANCOMYCIN HCL 1,500 MG in DEXTROSE 5%-WATER - 500 ML IVPB SCH (12:02)
== END 2019-05-13 14:51 | DRG 593 ==
LOC: JER 12:14 → JERBED 14:00 → J8W 17:27
PROVIDERS: ADMIT Internal Medicine; ATTEND Internal Medicine
PROC: 02HV33Z Insertion of Infusion Device into Superior Vena Cava, Percutaneous Approach (ICD-10-PCS; principal; 2019-05-12)
DX: L89.214 Pressure ulcer of right hip, stage 4 (principal); G82.20 Paraplegia, unspecified; L89.323 Pressure ulcer of left buttock, stage 3; D64.9 Anemia, unspecified; E78.00 Pure hypercholesterolemia, unspecified; Z93.1 Gastrostomy status; A49.02 Methicillin resistant Staphylococcus aureus infection, unspecified site; I10 Essential (primary) hypertension; E66.9 Obesity, unspecified; Z68.34 Body mass index [BMI] 34.0-34.9, adult
CPT/HCPCS: 36415; 36569; 71045-TC-FY; 75820-TC-FY; 77001-TC-FY; 80053; 85025; 85610; 85651; 86140; 87040; 93005; 93010; 99283-25; C1751; G0463-25; G0480; J0131

== ENCOUNTER 2020-01-21 05:15 | Day surgery (SDC) | payer OTHER ==
[2020-01-20 14:16] VITALS: BMI 32.0
[2020-01-21 08:32] LABS: BASO % 0.6 % (0-2.0); EOS % 8.9 % (0-4.5); HEMATOCRIT 25.7 % (32.4-45.2); HEMOGLOBIN 7.9 GM/dL (10.7-15.3); LYMPH % 19.2 % (8-40); MCH 21.4 pg (25.7-33.7); MCHC 30.6 g/dl (32.0-36.0); MEAN CELL VOLUME 69.9 fl (80-96); MEAN PLT VOLUME 7.5 fl (7.5-11.1); MONO % 6.9 % (3.8-10.2); NEUT % 64.4 % (42.8-82.8); PLATELET COUNT 457 K/MM3 (134-434); RBC 3.68 M/mm3 (3.60-5.2); RDW 20.1 % (11.6-15.6); WHITE BLOOD COUNT 6.7 K/mm3 (4.0-10.0)
[2020-01-21 09:07] LABS: INR 1.13 (0.83-1.09); PROTHROMBIN TIME (PATIENT) 13.4 SEC (9.7-13.0)
[2020-01-21 12:39] VITALS: BP 133/72; PULSE 65; TEMP 97.9
--- NOTE | 2020-01-25 17:35 | PATH ---
Surgical Pathology Report Patient Name: BRAYDON LUTHER [facility]. Rec. #: [id number] /Age/Gender: 1965 (Age: 54) / F Account: [id number] Location: RADIOLOGY INTER Taken: 01/21/2020 Received: 01/21/2020 Reported: 01/25/2020 Physicians: Dakota Pro M.D. Specimen(s) Received SACRUM, BONE, EXPANSILE LESION, CT-GUIDED CORE BIOPSY Clinical History 54 year old female paraplegic with expansile lesion of sacrum Final Diagnosis SACRUM, BONE, EXPANSILE LESION, CT-GUIDED CORE BIOPSY: INFLAMED GRANULATION TISSUE WITH PATCHY ACUTE AND CHRONIC INFLAMMATION. SMALL AGGREGATE OF OSTEOCLAST GIANT CELLS WITH ASSOCIATED BONE AND CARTILAGE. NO CARCINOMA IDENTIFIED. Comment: Immunohistochemical stains performed and interpreted at [facility] show cytokeratin AE1/3 is negative. Overall findings favor a reactive process. Suggest clinical and radiologic correlation. Positive and negative controls (internal if applicable) show appropriate results. Electronically Signed Reyna Harden M.D. Gross Description Received in formalin labeled "bone biopsy," are 3 radford, cylindrical portions of bone ranging from 1.3-1.7 cm in length and averaging 0.1 cm in diameter. The specimens are submitted in toto in one cassette, following decalcification. 01/21/2020 [facility]01/21/2020
== END 2020-01-21 12:45 | disposition home or self-care (01) ==
LOC: JRADIR 05:15
PROVIDERS: ATTEND Internal Medicine
PROC: 0QB13ZX Excision of Sacrum, Percutaneous Approach, Diagnostic (ICD-10-PCS; principal; 2020-01-21)
DX: D16.8 Benign neoplasm of pelvic bones, sacrum and coccyx (principal)
CPT/HCPCS: 20220; 36415; 85025; 85610; 87070; 87075; 87102; 87116; 87205; 87206; 87210; 88305-TC; 88342-TC

== ENCOUNTER 2020-02-23 05:19 | Day surgery (SDC) | payer OTHER ==
[2020-02-19 17:42] VITALS: BMI 29.0
[2020-02-23 09:25] VITALS: TEMP 98
[2020-02-23 16:11] LABS: BF WBC & OTHER NUCLEATED CELLS 1539 /mm3
[2020-02-23 19:30] LABS: BODY FLUID MACROPHAGES 5 %
[2020-02-23 20:09] VITALS: BP 131/82; PULSE 95
--- NOTE | 2020-02-24 16:39 | PATH ---
Cytology Non-Gynecological Report Patient Name: BRAYDON LUTHER [facility]. Rec. #: [id number] /Age/Gender: 1965 (Age: 54) / F Account: [id number] Location: RADIOLOGY INTER Taken: 02/23/2020 Received: 02/23/2020 Reported: 02/24/2020 Physicians: Courtney Howe M.D. Specimen(s) Received A: LEFT PLEURAL FLUID B: LEFT PLEURAL FLUID Clinical History Pleural effusion, left side Final Diagnosis A-B. PLEURAL FLUID, LEFT, THORACENTESIS: SATISFACTORY FOR EVALUATION NEGATIVE FOR MALIGNANCY. RARE MESOTHELIAL CELLS, FEW LYMPHOCYTES, AND RED BLOOD CELLS PRESENT. Electronically Signed Reyna Harden M.D. Gross Description A. Approximately 800 cc of bloody fluid received fresh. One cytofunnel prepared and Pap stained. One cellblock prepared. B. Approximately 50 cc of bloody fluid received fixed in 50% alcohol. One cytofunnel prepared and Pap stained. One cellblock prepared.
[2020-02-25 14:10] LABS: BODY FLUID ALBUMIN 2.4 g/dL (Not Estab.)
== END 2020-02-23 15:05 | disposition home or self-care (01) ==
LOC: JRADIR 05:19
PROVIDERS: ATTEND Internal Medicine
PROC: 0W9B3ZZ Drainage of Left Pleural Cavity, Percutaneous Approach (ICD-10-PCS; principal; 2020-02-23)
PROC: BB4BZZZ Ultrasonography of Pleura (ICD-10-PCS; 2020-02-23)
DX: J90 Pleural effusion, not elsewhere classified (principal)
CPT/HCPCS: 36415; 71045-TC-FY; 76942; 82042; 82150; 82945; 83615; 83986; 84157; 84478; 87070; 87075; 87102; 87116; 87205; 87206; 87210; 88108; 88305-TC

== ENCOUNTER 2020-03-12 14:52 | Inpatient (IN) | payer OTHER ==
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
--- OUTSIDE RECORDS SUMMARY | 2020-03-12 15:09 | XMS ---
:1965 Author Organization [facility] Care Team Providers Name Role Phone Gee Barron MD Unavailable Unavailable Jose Eduardo Barron MD Unavailable Unavailable Jose Eduardo Barron MD Unavailable Unavailable Jose Eduardo Barron MD Unavailable Unavailable Jose Eduardo Barron MD Unavailable Unavailable Jose Eduardo Barron MD Unavailable Unavailable Jose Eduardo Barron MD Unavailable Unavailable [email or web address] Unavailable Unavailable CONORENDORF PINEDA L Unavailable Unavailable JARRETT ORNELAS Unavailable Unavailable Stone Unavailable Unavailable Re-disclosure Warning The records that you are about to access may contain information from federally- assisted alcohol or drug abuse programs. If such information is present, then the following federally mandated warning applies: This information has been disclosed to you from records protected by federal confidentiality rules (42 CFR part 2). The federal rules prohibit you from making any further disclosure of this information unless further disclosure is expressly permitted by the written consent of the person to whom it pertains or as otherwise permitted by 42 CFR part 2. A general authorization for the release of medical or other information is NOT sufficient for this purpose. The Federal rules restrict any use of the information to criminally investigate or prosecute any alcohol or drug abuse patient.The records that you are about to access may contain highly sensitive health information, the redisclosure of which is protected by Article 27-F of the [facility] Public Health law. If you continue you may haveaccess to information: Regarding HIV / AIDS; Provided by facilities licensed or operated by the [facility] Office of Mental Health; or Provided by the [facility] Office for People With Developmental Disabilities. If such information is present, then the following [facility] mandated warning applies: This information has been disclosed to you from confidential records which are protected by state law. State law prohibits you from making any further disclosure of this information without the specific written consent of the person to whom it pertains, or as otherwise permitted by law. Any unauthorized further disclosure in violation of state law may result in a fine or residential sentence or both. A general authorization for the release of medical or other information is NOT sufficient authorization for further disclosure. Encounters Encounter Providers Location Date Indications Data Source(s ) Outpatient Admitter: CECI Rebolledo 02/15/2020 [facility] GAITANLONNIE CECI 11:15:00 AM Medical Center EDT Outpatient Attender: SPENCER Rebolledo 02/10/2020 [facility] LESAKIWSKYJAttend 10:34:00 AM [facility] er: PINEDA SUNG LAdmitter: SPENCER ARIZAKYJReferr er: PINEDA Arreola Attender: 11/06/2019 [place]NCOUNTER SCREENING [place] 02:30:00 PM FOR MALIGNANT Hos evan HANDLEY EDT NEOPLASM COLON ENCOUNTER SCREENING FOR MALIGNANT NEOPLA SM COLON Outpatient Attender: Latisha Lopez-WOUND 01/20/2018 09:52:00 AM [facility] Radha Quispe [place] EDT - 01/20/2018 Hospital 11:59:00 PM EDT Outpatient Attender: Latisha 5T-WOUND 12/24/2017 [facility] [place] [facility]2017 Hospital 11:59:00 PM EDT Outpatient Attender: Latisha Lopez-WOUND 11/26/2017 10:56:[facility] [place] [facility] - 11/26/2017 Hospital 11:59:00 PM EDT Outpatient Attender: Latisha Lopez-WOUND 10/29/2017 10:07:00 AM S - [facility] EDT - 10/29/2017 Hospital 11:59:00 PM EDT Outpatient Attender: Latisha Lopez-WOUND 10/01/2017 10:09:00 AM S - [facility] EDT - 10/01/2017 Hospital 11:59:00 PM EDT Outpatient Attender: Latisha Lopez-WOUND 09/03/2017 01:17:00 PM S - [facility] EDT - 09/03/2017 Hospital 11:59:00 PM EDT Insurance Providers Payer name Policy type / Policy ID Covered Covered democrat's Policy Plan Coverage type democrat ID relationship to Ayala Information ayala MEDICAID [id number] SP [id number] HIP MEDICARE [id number] SP [id number] VIP 01 MEDICAID [id number] SP [id number] HIP MEDICARE [id number] SP [id number] VIP 01 HIP MEDICARE [id number] SP [id number] VIP 01 MEDICAID [id number] SP [id number] HIP O [id number] 01 [id number] 1 01 W [id number] 01 [id number] [facility] Commercial [id number] 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 [facility] Commercial [id number] HIP VIP 01 Medicare Medicare Part Medicare [id number] 1 [id number] B Outpatient A Blue Cross PPO Blue Cross [id number] [employer] MEDICARE [id number] SP [id number] HIP [facility] [id number] PT [id number] 1 01 HIP MEDICARE [id number] SP [id number] VIP 01 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 [id number] SP [id number] 01 01 [employer] MEDICARE [id number] SP [id number] 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 [id number] SP [id number] 01 01 HIP HMO [id number] SP [id number] 1 01 Problems, Conditions, and Diagnoses Code Display Name Description Problem Type Effective Data Dates Source(s) Z01.810 Encounter for ENCOUNTER FOR Diagnosis 02/10/2020 [facility] [place] preprocedural PREPROCEDURAL 10:34:00 AM Medical cardiovascular CARDIOVASCULAR EDT Center examination EXAMINATION L89.304 Pressure ulcer of Decubitus ulcer of Diagnosis 01/20/2018 [facility] unspecified buttock, stage 4 12:00:00 AM Jose Enrique buttock, stage 4 EDT Hospital L89.314 Pressure ulcer of Decubitus ulcer of Diagnosis 11/26/2017 [facility] right buttock, right buttock, 12:00:00 AM Verno n stage 4 stage 4 EDT Hospital Results ID Date Data Source [id number] 02/19/2020 01:20:00 PM EDT [facility] Name Value Range Interpretation Description Data Sup porting Code Source(s) Document(s ) SARS [facility] coronavirus 2 RNA This lab was ordered by [facility] and reported by [facility]. ID Date Data Source [id number] 02/10/2020 12:00:00 AM EDT [facility] Name Value Range Interpretation Code Description Data Erika rce(s) Supporting Document(s ) 2019-nCoV [facility] RNA XXX RAISA+probe- Imp This lab was ordered by [facility] and reported by [address] [facility]. ID Date Data Source [id number] 01/18/2020 12:45:00 PM EDT [facility] Name Value Range Interpretation Description Data Sup porting Code Source(s) Document(s ) SARS [facility] coronavirus 2 RNA This lab was ordered by [facility] and reported by [facility]. Procedure Social History Code Duration Value Status Description Data Source(s ) Smoking Unknown if ever completed Unknown if ever Kurt Infante smoked [facility]
[2020-03-12 16:18] LABS: BASO % 0.8 % (0-2.0); EOS % 5.3 % (0-4.5); HEMOGLOBIN 9.3 GM/dL (10.7-15.3); LYMPH % 21.5 % (8-40); MCH 21.4 pg (25.7-33.7); MEAN CELL VOLUME 69.1 fl (80-96); MEAN PLT VOLUME 8.3 fl (7.5-11.1); MONO % 7.1 % (3.8-10.2); NEUT % 65.3 % (42.8-82.8); PLATELET COUNT 380 K/MM3 (134-434); RBC 4.35 M/mm3 (3.60-5.2); RDW 19.7 % (11.6-15.6); WHITE BLOOD COUNT 7.7 K/mm3 (4.0-10.0)
[2020-03-12 16:25] LABS: EPI CELLS >36 /uL (0-25.1); HYALINE CASTS 23 /uL (0-3.1); URINE APPEARANCE CLOUDY; URINE BACTERIA 6457 /uL (0-1359); URINE BILIRUBIN NEGATIVE (NEGATIVE); URINE COLOR YELLOW; URINE GLUCOSE (UA) NEGATIVE (NEGATIVE); URINE KETONE NEGATIVE (NEGATIVE); URINE LEUK ESTERASE 3+ (NEGATIVE); URINE NITRITE POSITIVE (NEGATIVE); URINE PROTEIN 2+ (NEGATIVE); URINE RBC 215 /uL (0-23.9); URINE WBC 354 /uL (0-25.8)
[2020-03-12 16:32] LABS: INR 1.2 (0.83-1.09); PROTHROMBIN TIME (PATIENT) 14.2 SEC (9.7-13.0)
[2020-03-12 16:35] LABS: ACTIVATED PTT 36.4 SECONDS (25.2-36.5)
[2020-03-12] MEDS ORDERED: CEFTRIAXONE 1 GM in DEXTROSE 5%-WATER - 100 ML IVPB ONE (16:36)
[2020-03-12 16:42] LABS: LDH 300 U/L (84-246)
[2020-03-12 16:45] LABS: ALBUMIN 2.4 g/dl (3.4-5.0); ALK PHOS 219 U/L (45-117); ANION GAP 8 MMOL/L (8-16); BILIRUBIN,TOTAL 0.3 mg/dL (0.2-1); BLOOD UREA NITROGEN 6.6 mg/dL (7-18); CALCIUM 8.6 mg/dL (8.5-10.1); CHLORIDE 101 mmol/L (98-107); CO2 28 mmol/L (21-32); CREATININE 0.4 mg/dL (0.55-1.3); GLUCOSE,RANDOM 86 mg/dL (74-106); MAGNESIUM 1.7 mg/dL (1.8-2.4); PHOSPHOROUS 3.4 mg/dL (2.5-4.9); POTASSIUM 3.2 mmol/L (3.5-5.1); SGOT/AST 16 U/L (15-37); SGPT/ALT 13 U/L (13-61); SODIUM 137 mmol/L (136-145); TOT PROT 7.9 g/dl (6.4-8.2)
[2020-03-12] MEDS ORDERED: CEFTRIAXONE 1 GM/50 ML BAG ONE (16:47)
[2020-03-12] MEDS ORDERED: MAGNESIUM SULF 50% (8.12 MEQ/2 ML-1 GM VIAL) IVPB ONE (16:57)
[2020-03-12] MEDS ORDERED: MAGNESIUM SULF 50% (8.12 MEQ/2 ML-1 GM VIAL) ONE (17:10)
[2020-03-12] MEDS ORDERED: KCL 10 MEQ IVPB 10 MEQ/100 ML INFUS.BAG IVPB ONE (17:11)
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
[2020-03-12] MEDS: KCL 10 MEQ IVPB 10 MEQ/100 ML INFUS.BAG IVPB SCH ×2 (17:20→19:45)
--- OUTSIDE RECORDS SUMMARY | 2020-03-12 18:00 | XMS ---
:1965 Author Organization [facility] Care Team Providers Name Role Phone Gee [...] is protected by Article 27-F of the [facility] Public Health law. If you continue you may haveaccess to information: Regarding HIV / AIDS; Provided by facilities licensed or operated by the [facility] Office of Mental Health; or Provided by the [facility] Office for People With Developmental Disabilities. If such information is present, then the following [facility] mandated warning applies: This information has been [...] law may result in a fine or prison sentence or both. A general authorization for the release of medical or other information is NOT sufficient authorization for further disclosure. Encounters Encounter Providers Location Date Indications Data Source(s ) Outpatient Admitter: CECI Rebolledo 02/15/2020 [facility] GAITANLONNIE CECI 11:15:00 AM Medical Center EDT Outpatient Attender: SPENCER Rebolledo 02/10/2020 [facility] LESAKIWSKYJAttend 10:34:00 AM [facility] er: PINEDA SUNG LAdmitter: SPENCER ARIZAKYJReferr er: PINEDA Arreola Attender: 11/06/2019 ENCOUNTER SCREENING [place] 02:30:00 PM FOR MALIGNANT Hos evan HANDLEY EDT NEOPLASM COLON ENCOUNTER SCREENING FOR MALIGNANT NEOPLA SM COLON Outpatient Attender: Latisha Lopez-WOUND 01/20/2018 09:52:00 AM [facility] Radha Quispe [place] EDT - 01/20/2018 Hospital 11:59:00 PM EDT Outpatient Attender: Latisha 5T-WOUND 12/24/2017 [facility]01[facility] Hospital 11:59:00 PM EDT Outpatient Attender: Latisha Lopez-WOUND 11/26/2017 10:56:[facility] [place] [facility] - 11/26/2017 Hospital 11:59:00 PM EDT [...] ID relationship to Ayala Information ayala MEDICAID [id number] SP [id number] HIP MEDICARE [id number] SP [id number] VIP 01 MEDICAID [id number] SP [id number] HIP MEDICARE [id number] SP [id number] VIP 01 HIP MEDICARE [id number] SP [id number] VIP 01 MEDICAID [id number] SP [id number] HIP O [id number] 01 [id number] 1 01 W [id number] 01 [id number] [employer] Commercial [id number] 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 [employer] Commercial [id number] 1 [id number] HIP VIP 01 Medicare Medicare Part Medicare [id number] 1 [id number] B Outpatient A Blue Cross PPO Blue Cross [id number] [employer] MEDICARE [id number] SP [id number] HIP [facility] [id number] PT [id number] 1 01 HIP MEDICARE [id number] SP [id number] VIP 01 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 ID Date Data Source [id number] 02/10/2020 12:00:00 AM EDT [facility] Name Value Range Interpretation Code Description Data Erika rce(s) Supporting Document(s ) 2019-nCoV [facility] RNA XXX RAISA+probe- Imp This lab was ordered by [facility] and reported by [facility]. ID Date Data Source [id number] 01/18/2020 12:45:00 PM EDT [facility] Name Value Range Interpretation Description Data Sup porting Code Source(s) Document(s ) SARS [facility] coronavirus 2 RNA This lab was ordered by [facility] and reported by [facility]. Procedure Social History Code Duration Value Status Description Data Source(s ) Smoking Unknown if ever completed Unknown if ever Kurt Infante smoked [facility]
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
[2020-03-12 21:54] VITALS: BMI 27.8
[2020-03-12] MEDS ORDERED: HYDROmorphone HCL 2 MG TABLET PO ONE (23:36)
[2020-03-12] MEDS ORDERED: ALBUTEROL SO4 HFA INHALER IH PRN (23:38)
[2020-03-12] MEDS ORDERED: ZOLPIDEM TARTRATE 5 MG TABLET PO ONE ×2 (23:38→23:54)
[2020-03-12] MEDS ORDERED: FAMOTIDINE 20 MG/50 ML IVPB 20 MG/50 ML MG IVPB SCH (23:45)
[2020-03-13 08:29] LABS: BASO % 0.6 % (0-2.0); EOS % 5.9 % (0-4.5); HEMATOCRIT 26.9 % (32.4-45.2); HEMOGLOBIN 8.4 GM/dL (10.7-15.3); LYMPH % 28.7 % (8-40); MCH 21.3 pg (25.7-33.7); MCHC 31.3 g/dl (32.0-36.0); MEAN PLT VOLUME 7.7 fl (7.5-11.1); MONO % 7.7 % (3.8-10.2); NEUT % 57.1 % (42.8-82.8); PLATELET COUNT 412 K/MM3 (134-434); RBC 3.96 M/mm3 (3.60-5.2); RDW 19.2 % (11.6-15.6); WHITE BLOOD COUNT 7.1 K/mm3 (4.0-10.0)
[2020-03-13 09:13] LABS: ALBUMIN 2.2 g/dl (3.4-5.0); BLOOD UREA NITROGEN 6.4 mg/dL (7-18); CALCIUM 8.5 mg/dL (8.5-10.1); POTASSIUM 3.1 mmol/L (3.5-5.1)
[2020-03-13 09:19] LABS: BILIRUBIN,TOTAL 0.3 mg/dL (0.2-1); CREATININE 0.3 mg/dL (0.55-1.3); TOT PROT 7.2 g/dl (6.4-8.2)
[2020-03-13] MEDS ORDERED: diphenhydrAMINE HCL 25 MG CAPSULE (FP) PO PRN (09:45)
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
[2020-03-13] MEDS ORDERED: ENOXAPARIN NA (PORCINE) 40 MG/0.4 ML DISP.SYRIN SQ SCH (10:00)
[2020-03-13] MEDS: FERROUS SO4 325 MG TABLET (FP) PO SCH (10:50)
[2020-03-13] MEDS: ASCORBIC ACID 500 MG TABLET (FP) PO SCH (10:50)
[2020-03-13] MEDS: FAMOTIDINE 20 MG TABLET PO SCH (10:50)
[2020-03-13] MEDS: LACTOBACILLUS ACIDOPHILUS 1 TABLET PO SCH (10:50)
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
[2020-03-13] MEDS: HYDROmorphone HCL 2 MG TABLET PO PRN ×2 (12:46→21:15)
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
--- NOTE | 2020-03-13 15:10 | EKG ---
Test Reason : Blood Pressure : / mmHG Vent. Rate : 075 BPM Atrial Rate : 075 BPM P-R Int : 132 ms QRS Dur : 088 ms QT Int : 386 ms P-R-T Axes : 037 -06 000 degrees QTc Int : 431 ms NORMAL SINUS RHYTHM CANNOT RULE OUT INFERIOR INFARCT , AGE UNDETERMINED ABNORMAL ECG WHEN COMPARED WITH ECG OF 24-AUG-2019 18:30, NO SIGNIFICANT CHANGE WAS FOUND Confirmed by MD Teresa Daniel ([id number]) on 03/13/2020 3:09:43 PM Referred By: Confirmed By:Mt Teresa MD
[2020-03-13] MEDS: COLLAGENASE CLOSTRIDIUM HIST. 30 GRAMS TUBE TP SCH (17:41)
[2020-03-13] MEDS: POSACONAZOLE PO SCH (17:53)
[2020-03-13] MEDS: ZOLPIDEM TARTRATE 5 MG TABLET PO PRN (21:16)
--- NOTE | 2020-03-14 08:43 | PN ---
Progress Note (short form) - Note Progress Note: c/o abdominal pain Vital Signs Period Temp Pulse Resp BP Sys/Paul Pulse Ox Last 24 Hr 97.8 F-99 F 76-83 18-20 108-132/54-78 95-99 s1s2 rrr lungs decreased BS on left abd diffuse tenderness, +bs, soft, no guarding or rebound aaox3 paraplegic bilateral gluteal decubiti stage 4 suprapubic catheter chronic 54 yo lady paraplegic for decades has chronic gluteal decubitis, has been treated several times for osteo currently on posaconazole for amelia glabrata bacteremia 12-18 months ago 1 pleural effusion of unknown origin -thoracentesis with pigtail cath today -check chest CT afterwards 2 indwelling linda-uti -repeat cx 3 wound care as before 4 continued abdominal pain-sharp stabbing diffuse -will request gi eval -referred pain? 5 anemia likely chr. ds, was scheduled for colonoscopy, but never got around to do it
[2020-03-14] MEDS: FERROUS SO4 325 MG TABLET (FP) PO SCH (10:17)
[2020-03-14] MEDS: LACTOBACILLUS ACIDOPHILUS 1 TABLET PO SCH (10:17)
[2020-03-14] MEDS: ASCORBIC ACID 500 MG TABLET (FP) PO SCH (10:17)
[2020-03-14] MEDS: FAMOTIDINE 20 MG TABLET PO SCH (10:17)
[2020-03-14] MEDS: POSACONAZOLE PO SCH (10:18)
[2020-03-14] MEDS: OXYBUTYNIN CHLORIDE 5 MG TABLET PO SCH ×4 (10:32→21:41)
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
[2020-03-14] MEDS: HYDROmorphone HCL 2 MG TABLET PO PRN ×2 (15:47→21:41)
[2020-03-14] MEDS: AMINO ACIDS/PROTEIN HYDROLYS 30 ML LIQUID.PKT PO SCH (18:13)
[2020-03-14] MEDS: COLLAGENASE CLOSTRIDIUM HIST. 30 GRAMS TUBE TP SCH (18:13)
[2020-03-14] MEDS: ZOLPIDEM TARTRATE 5 MG TABLET PO PRN (21:41)
[2020-03-15] MEDS: OXYBUTYNIN CHLORIDE 5 MG TABLET PO SCH ×3 (06:10→21:52)
--- NOTE | 2020-03-15 08:16 | PN ---
Progress Note (short form) - Note Progress Note: c/o abdominal pain Vital Signs Period Temp Pulse Resp BP Sys/Paul Pulse Ox Last 24 Hr 97.8 F-99 F 76-83 18-20 108-132/54-78 95-99 s1s2 rrr lungs decreased BS on left abd diffuse tenderness, +bs, soft, no guarding or rebound aaox3 paraplegic bilateral gluteal decubiti stage 4 suprapubic catheter chronic 54 yo lady paraplegic for decades has chronic gluteal decubitis, has been treated several times for osteo currently on posaconazole for amelia glabrata bacteremia 12-18 months ago 1 pleural effusion of unknown origin -thoracentesis with pigtail cath yesterday -check chest CT afterwards 2 indwelling linda-uti -repeat cx 3 wound care as before 4 continued abdominal pain-sharp stabbing diffuse -will request gi eval -referred pain? 5 anemia likely chr. ds, was scheduled for colonoscopy, but never got around to do it
[2020-03-15] MEDS: AMINO ACIDS/PROTEIN HYDROLYS 30 ML LIQUID.PKT PO SCH ×2 (09:20→17:23)
[2020-03-15] MEDS: POSACONAZOLE PO SCH (09:21)
[2020-03-15] MEDS: HYDROmorphone HCL 2 MG TABLET PO PRN ×2 (09:24→17:21)
[2020-03-15] MEDS: ASCORBIC ACID 500 MG TABLET (FP) PO SCH (09:24)
[2020-03-15] MEDS: FAMOTIDINE 20 MG TABLET PO SCH (09:24)
[2020-03-15] MEDS: FERROUS SO4 325 MG TABLET (FP) PO SCH (09:25)
[2020-03-15] MEDS: LACTOBACILLUS ACIDOPHILUS 1 TABLET PO SCH (09:25)
[2020-03-15] MEDS: ENOXAPARIN NA (PORCINE) 40 MG/0.4 ML DISP.SYRIN SQ SCH (09:26)
[2020-03-15] MEDS: COLLAGENASE CLOSTRIDIUM HIST. 30 GRAMS TUBE TP SCH (11:46)
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
[2020-03-15] MEDS ORDERED: PT OWN MED DRAWER 7, Y5N ONE (14:05)
[2020-03-15] MEDS ORDERED: MAG HYDROX/AL HYDROX/SIMETH 30 ML UNIT-DOSE CUP PO PRN (14:08)
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
[2020-03-15] MEDS: SIMETHICONE 80 MG TAB.CHEW (FP) PO PRN (15:18)
[2020-03-15] MEDS: ACETAMINOPHEN 325 MG TABLET (FP) PO PRN (21:48)
[2020-03-15] MEDS: DOCUSATE SODIUM 100 MG CAPSULE (FP) PO SCH (21:52)
[2020-03-15] MEDS: ZOLPIDEM TARTRATE 5 MG TABLET PO PRN (21:52)
[2020-03-16] MEDS: SIMETHICONE 80 MG TAB.CHEW (FP) PO PRN ×2 (06:10→10:20)
[2020-03-16] MEDS: OXYBUTYNIN CHLORIDE 5 MG TABLET PO SCH ×3 (06:10→21:21)
[2020-03-16] MEDS: DOCUSATE SODIUM 100 MG CAPSULE (FP) PO SCH ×3 (06:10→21:21)
[2020-03-16 08:00] LABS: BASO % 0.4 % (0-2.0); EOS % 3.1 % (0-4.5); HEMATOCRIT 29.7 % (32.4-45.2); HEMOGLOBIN 9.2 GM/dL (10.7-15.3); LYMPH % 18.2 % (8-40); MCHC 30.9 g/dl (32.0-36.0); MEAN CELL VOLUME 68.2 fl (80-96); MEAN PLT VOLUME 7.6 fl (7.5-11.1); MONO % 9.5 % (3.8-10.2); NEUT % 68.8 % (42.8-82.8); PLATELET COUNT 407 K/MM3 (134-434); RBC 4.35 M/mm3 (3.60-5.2); RDW 19.2 % (11.6-15.6); WHITE BLOOD COUNT 10.1 K/mm3 (4.0-10.0)
--- NOTE | 2020-03-16 08:07 | PN ---
Progress Note (short form) - Note Progress Note: see other note
--- NOTE | 2020-03-16 08:17 | PN ---
Progress Note (short form) - Note Progress Note: c/o nausea, increased abdominal discomfort febrile at night Vital Signs Period Temp Pulse Resp BP Sys/Paul Pulse Ox Last 24 Hr 97.8 F-101.7 F 72-86 18-20 125-147/57-80 94-97 labs pending this am s1s2 rrr lungs decreased BS on left chest tube with bloody fluid in drain, collection case empty abd diffuse tenderness, +bs, soft, no guarding or rebound aaox3 paraplegic bilateral gluteal decubiti stage 4 suprapubic catheter chronic 54 yo lady paraplegic for decades has chronic gluteal decubitis, has been treated several times for osteo currently on posaconazole for amelia glabrata bacteremia 12-18 months ago 1 pleural effusion of unknown origin -thoracentesis with pigtail cath yesterday -chest CT reviewed-possible penumonia -abx as per ID 2 indwelling linda-uti -repeat cx pending 3 wound care as before 4 continued abdominal pain-sharp stabbing diffuse -will request gi eval -referred pain? 5 anemia likely chr. ds, was scheduled for colonoscopy, but never got around to do it
[2020-03-16] MEDS ORDERED: ONDANSETRON 4 MG/2 ML VIAL IVPB PRN (08:18)
[2020-03-16 08:30] LABS: ALBUMIN 2.3 g/dl (3.4-5.0); BILIRUBIN,TOTAL 0.7 mg/dL (0.2-1); CALCIUM 8.7 mg/dL (8.5-10.1); CREATININE 0.3 mg/dL (0.55-1.3); TOT PROT 7.6 g/dl (6.4-8.2)
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
[2020-03-16] MEDS ORDERED: PIPERACILLIN/TAZOBACTAM 3.375 GM VIAL IVPB ONE ×2 (10:17→17:12)
[2020-03-16] MEDS ORDERED: DEXTROSE 5%-WATER - 50 ML IVPB ONE ×2 (10:17→17:12)
[2020-03-16] MEDS: PIPERACILLIN/TAZOB 3.375 GM 3.375 GM in DEXTROSE 5%-WATER - 50 ML IVPB SCH ×2 (10:20→17:49)
[2020-03-16] MEDS: ENOXAPARIN NA (PORCINE) 40 MG/0.4 ML DISP.SYRIN SQ SCH (10:20)
[2020-03-16] MEDS: ASCORBIC ACID 500 MG TABLET (FP) PO SCH (10:21)
[2020-03-16] MEDS: FERROUS SO4 325 MG TABLET (FP) PO SCH (10:27)
[2020-03-16] MEDS: LACTOBACILLUS ACIDOPHILUS 1 TABLET PO SCH (10:27)
[2020-03-16] MEDS: AMINO ACIDS/PROTEIN HYDROLYS 30 ML LIQUID.PKT PO SCH ×2 (10:27→17:49)
[2020-03-16] MEDS: KCL 10 MEQ IVPB 10 MEQ/100 ML INFUS.BAG IVPB SCH ×4 (10:27→14:30)
[2020-03-16] MEDS: POTASSIUM CHLORIDE TABS 20 MEQ TABLET.ER (FP) PO SCH (10:29)
[2020-03-16] MEDS: FAMOTIDINE 20 MG TABLET PO SCH (10:29)
[2020-03-16] MEDS: POSACONAZOLE PO SCH (10:39)
[2020-03-16 10:55] LABS: ANISOCYTOSIS 1+; MACROCYTOSIS 0; PLATELET ESTIMATE NORMAL; TEAR DROP CELLS 1+
[2020-03-16 11:07] LABS: POTASSIUM 2.8 mmol/L (3.5-5.1)
[2020-03-16] MEDS: ZOLPIDEM TARTRATE 5 MG TABLET PO PRN (11:42)
--- NOTE | 2020-03-16 12:45 | PN ---
Progress Note (short form) - Note Progress Note: GI CONSULT DICTATED -- ABD SONOGRAM -- PPI -- STANDING DOSE SIMETHICONE -- BOWEL REGIMEN -- BENTYL
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
[2020-03-16 14:07] LABS: BODY FLUID ALBUMIN 2.4 g/dL (Not Estab.)
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
[2020-03-16] MEDS ORDERED: PT OWN MED DRAWER 7, Y5N ONE ×2 (14:28→15:34)
[2020-03-16] MEDS: SIMETHICONE 80 MG TAB.CHEW (FP) PO SCH ×3 (14:31→21:24)
[2020-03-16] MEDS: PANTOPRAZOLE SODIUM 40 MG VIAL IVPUSH SCH (14:31)
[2020-03-16] MEDS: DICYCLOMINE HCL 10 MG CAPSULE PO SCH ×2 (14:33→21:22)
[2020-03-16] MEDS: HYDROmorphone HCL 2 MG TABLET PO PRN (17:48)
[2020-03-16] MEDS: COLLAGENASE CLOSTRIDIUM HIST. 30 GRAMS TUBE TP SCH (17:49)
--- NOTE | 2020-03-16 18:25 | PATH ---
Cytology Non-Gynecological Report Patient Name: BRAYDON LUTHER Med. Rec. #: [id number] /Age/Gender: 1965 (Age: 54) / F Account: [id number] Location: [facility] MED/SURG Taken: 03/15/2020 Received: 03/15/2020 Reported: 03/16/2020 Physicians: Juan Norton M.D. Specimen(s) Received PLEURAL FLUID, LEFT Clinical History Left pleural effusion Final Diagnosis PLEURAL FLUID, LEFT, THORACENTESIS: SATISFACTORY FOR EVALUATION NEGATIVE FOR MALIGNANCY. MESOTHELIAL CELLS AND FEW LYMPHOCYTES PRESENT. Electronically Signed Reyna Harden M.D. Gross Description Approximately 30 cc of radford fluid received fixed in 50% alcohol. One cytofunnel prepared and Pap stained. One cellblock prepared.
[2020-03-16] MEDS: ACETAMINOPHEN 325 MG TABLET (FP) PO PRN (22:23)
[2020-03-17] MEDS: HYDROmorphone HCL 2 MG TABLET PO PRN ×3 (00:43→22:14)
[2020-03-17] MEDS ORDERED: PIPERACILLIN/TAZOBACTAM 3.375 GM VIAL IVPB ONE ×4 (01:26→18:02)
[2020-03-17] MEDS ORDERED: DEXTROSE 5%-WATER - 50 ML IVPB ONE ×4 (01:26→18:02)
[2020-03-17] MEDS: PIPERACILLIN/TAZOB 3.375 GM 3.375 GM in DEXTROSE 5%-WATER - 50 ML IVPB SCH ×3 (01:40→18:14)
[2020-03-17] MEDS: DOCUSATE SODIUM 100 MG CAPSULE (FP) PO SCH ×3 (06:47→22:14)
[2020-03-17] MEDS: OXYBUTYNIN CHLORIDE 5 MG TABLET PO SCH ×3 (06:47→22:17)
[2020-03-17 07:01] LABS: BASO % 0.6 % (0-2.0); EOS % 7.7 % (0-4.5); HEMATOCRIT 25.9 % (32.4-45.2); HEMOGLOBIN 8.1 GM/dL (10.7-15.3); LYMPH % 22.1 % (8-40); MCH 21.4 pg (25.7-33.7); MCHC 31.3 g/dl (32.0-36.0); MEAN CELL VOLUME 68.2 fl (80-96); MEAN PLT VOLUME 7.5 fl (7.5-11.1); MONO % 12.7 % (3.8-10.2); NEUT % 56.9 % (42.8-82.8); PLATELET COUNT 361 K/MM3 (134-434); RBC 3.79 M/mm3 (3.60-5.2); RDW 18.9 % (11.6-15.6); WHITE BLOOD COUNT 6.8 K/mm3 (4.0-10.0)
[2020-03-17 07:33] LABS: POTASSIUM 3.1 mmol/L (3.5-5.1)
[2020-03-17 07:48] LABS: ALBUMIN 2.1 g/dl (3.4-5.0); BILIRUBIN,TOTAL 0.3 mg/dL (0.2-1); BLOOD UREA NITROGEN 7.2 mg/dL (7-18); CALCIUM 8.4 mg/dL (8.5-10.1); CREATININE 0.4 mg/dL (0.55-1.3); MAGNESIUM 1.9 mg/dL (1.8-2.4); TOT PROT 6.9 g/dl (6.4-8.2)
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
[2020-03-17] MEDS: PANTOPRAZOLE SODIUM 40 MG VIAL IVPUSH SCH (10:49)
[2020-03-17] MEDS: SIMETHICONE 80 MG TAB.CHEW (FP) PO SCH ×4 (10:50→22:13)
[2020-03-17] MEDS: FAMOTIDINE 20 MG TABLET PO SCH (10:50)
[2020-03-17] MEDS: POTASSIUM CHLORIDE TABS 20 MEQ TABLET.ER (FP) PO SCH (10:51)
[2020-03-17] MEDS: LACTOBACILLUS ACIDOPHILUS 1 TABLET PO SCH (10:51)
[2020-03-17] MEDS: DICYCLOMINE HCL 10 MG CAPSULE PO SCH ×2 (10:51→22:14)
[2020-03-17] MEDS: ASCORBIC ACID 500 MG TABLET (FP) PO SCH (10:51)
[2020-03-17] MEDS: AMINO ACIDS/PROTEIN HYDROLYS 30 ML LIQUID.PKT PO SCH ×2 (10:51→18:14)
[2020-03-17] MEDS: FERROUS SO4 325 MG TABLET (FP) PO SCH (10:52)
[2020-03-17] MEDS: POSACONAZOLE PO SCH (10:53)
[2020-03-17] MEDS: COLLAGENASE CLOSTRIDIUM HIST. 30 GRAMS TUBE TP SCH (10:55)
[2020-03-17] MEDS: KCL 10 MEQ IVPB 10 MEQ/100 ML INFUS.BAG IVPB SCH ×2 (11:55→14:09)
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
[2020-03-17] MEDS ORDERED: PT OWN MED DRAWER 7, Y5N ONE (21:34)
[2020-03-17] MEDS: ZOLPIDEM TARTRATE 5 MG TABLET PO PRN (22:14)
[2020-03-18] MEDS ORDERED: PIPERACILLIN/TAZOBACTAM 3.375 GM VIAL IVPB ONE (01:46)
[2020-03-18] MEDS ORDERED: DEXTROSE 5%-WATER - 50 ML IVPB ONE (01:47)
[2020-03-18] MEDS: PIPERACILLIN/TAZOB 3.375 GM 3.375 GM in DEXTROSE 5%-WATER - 50 ML IVPB SCH (02:04)
[2020-03-18] MEDS: DOCUSATE SODIUM 100 MG CAPSULE (FP) PO SCH ×3 (06:11→22:14)
[2020-03-18] MEDS: OXYBUTYNIN CHLORIDE 5 MG TABLET PO SCH ×3 (06:11→22:15)
[2020-03-18] MEDS: AMINO ACIDS/PROTEIN HYDROLYS 30 ML LIQUID.PKT PO SCH ×2 (07:44→16:38)
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
[2020-03-18] MEDS: POTASSIUM CHLORIDE TABS 20 MEQ TABLET.ER (FP) PO SCH (10:05)
[2020-03-18] MEDS: DICYCLOMINE HCL 10 MG CAPSULE PO SCH ×2 (10:06→22:17)
[2020-03-18] MEDS: ASCORBIC ACID 500 MG TABLET (FP) PO SCH (10:06)
[2020-03-18] MEDS: SIMETHICONE 80 MG TAB.CHEW (FP) PO SCH ×4 (10:06→22:14)
[2020-03-18] MEDS: POLYETHYLENE GLYCOL 3350 119 GM BTL PO SCH (10:06)
[2020-03-18] MEDS: FERROUS SO4 325 MG TABLET (FP) PO SCH (10:06)
[2020-03-18] MEDS: PANTOPRAZOLE 40 MG TABLET PO SCH (10:06)
[2020-03-18] MEDS: FAMOTIDINE 20 MG TABLET PO SCH (10:06)
[2020-03-18] MEDS: LACTOBACILLUS ACIDOPHILUS 1 TABLET PO SCH (10:06)
[2020-03-18] MEDS: POSACONAZOLE PO SCH (10:07)
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
[2020-03-18] MEDS: COLLAGENASE CLOSTRIDIUM HIST. 30 GRAMS TUBE TP SCH (13:44)
[2020-03-18] MEDS: HYDROmorphone HCL 2 MG TABLET PO PRN ×2 (16:21→22:14)
[2020-03-18] MEDS ORDERED: PT OWN MED DRAWER 7, Y5N ONE (22:17)
[2020-03-18] MEDS: ZOLPIDEM TARTRATE 5 MG TABLET PO PRN (22:20)
[2020-03-19] MEDS: DOCUSATE SODIUM 100 MG CAPSULE (FP) PO SCH ×3 (06:11→21:43)
[2020-03-19] MEDS: OXYBUTYNIN CHLORIDE 5 MG TABLET PO SCH ×3 (06:11→21:43)
[2020-03-19 08:15] LABS: BASO % 0.5 % (0-2.0); EOS % 6.3 % (0-4.5); HEMATOCRIT 25.9 % (32.4-45.2); HEMOGLOBIN 7.9 GM/dL (10.7-15.3); LYMPH % 23.9 % (8-40); MCH 21.1 pg (25.7-33.7); MCHC 30.6 g/dl (32.0-36.0); MEAN PLT VOLUME 7.8 fl (7.5-11.1); MONO % 10.2 % (3.8-10.2); NEUT % 59.1 % (42.8-82.8); PLATELET COUNT 393 K/MM3 (134-434); RBC 3.76 M/mm3 (3.60-5.2); RDW 19.4 % (11.6-15.6); WHITE BLOOD COUNT 7.5 K/mm3 (4.0-10.0)
[2020-03-19 08:51] LABS: ALBUMIN 2.1 g/dl (3.4-5.0); BILIRUBIN,TOTAL 0.2 mg/dL (0.2-1); BLOOD UREA NITROGEN 6.6 mg/dL (7-18); CALCIUM 8.3 mg/dL (8.5-10.1); CREATININE 0.4 mg/dL (0.55-1.3); POTASSIUM 3.8 mmol/L (3.5-5.1)
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
[2020-03-19] MEDS ORDERED: PT OWN MED DRAWER 7, Y5N ONE ×2 (09:24→21:40)
[2020-03-19] MEDS: POTASSIUM CHLORIDE TABS 20 MEQ TABLET.ER (FP) PO SCH (09:42)
[2020-03-19] MEDS: FERROUS SO4 325 MG TABLET (FP) PO SCH (09:42)
[2020-03-19] MEDS: SIMETHICONE 80 MG TAB.CHEW (FP) PO SCH ×4 (09:42→21:43)
[2020-03-19] MEDS: ASCORBIC ACID 500 MG TABLET (FP) PO SCH (09:42)
[2020-03-19] MEDS: LACTOBACILLUS ACIDOPHILUS 1 TABLET PO SCH (09:42)
[2020-03-19] MEDS: PANTOPRAZOLE 40 MG TABLET PO SCH (09:42)
[2020-03-19] MEDS: POLYETHYLENE GLYCOL 3350 119 GM BTL PO SCH (09:43)
[2020-03-19] MEDS: DICYCLOMINE HCL 10 MG CAPSULE PO SCH ×2 (09:43→21:44)
[2020-03-19] MEDS: AMINO ACIDS/PROTEIN HYDROLYS 30 ML LIQUID.PKT PO SCH ×2 (09:43→17:33)
[2020-03-19] MEDS: FAMOTIDINE 20 MG TABLET PO SCH (09:44)
[2020-03-19] MEDS: POSACONAZOLE PO SCH (09:45)
[2020-03-19] MEDS: HYDROmorphone HCL 2 MG TABLET PO PRN ×3 (09:49→21:44)
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
[2020-03-19] MEDS: COLLAGENASE CLOSTRIDIUM HIST. 30 GRAMS TUBE TP SCH (13:38)
[2020-03-19] MEDS: ACETAMINOPHEN 325 MG TABLET (FP) PO PRN (18:30)
[2020-03-20] MEDS: DOCUSATE SODIUM 100 MG CAPSULE (FP) PO SCH ×3 (05:33→21:31)
[2020-03-20] MEDS: OXYBUTYNIN CHLORIDE 5 MG TABLET PO SCH ×3 (05:33→21:31)
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
[2020-03-20] MEDS: AMINO ACIDS/PROTEIN HYDROLYS 30 ML LIQUID.PKT PO SCH ×2 (09:00→17:03)
[2020-03-20] MEDS: LACTOBACILLUS ACIDOPHILUS 1 TABLET PO SCH (09:01)
[2020-03-20] MEDS: POTASSIUM CHLORIDE TABS 20 MEQ TABLET.ER (FP) PO SCH (09:02)
[2020-03-20] MEDS: DICYCLOMINE HCL 10 MG CAPSULE PO SCH ×2 (09:02→21:31)
[2020-03-20] MEDS: PANTOPRAZOLE 40 MG TABLET PO SCH (09:02)
[2020-03-20] MEDS: POLYETHYLENE GLYCOL 3350 119 GM BTL PO SCH (09:02)
[2020-03-20] MEDS: FERROUS SO4 325 MG TABLET (FP) PO SCH (09:02)
[2020-03-20] MEDS: ASCORBIC ACID 500 MG TABLET (FP) PO SCH (09:02)
[2020-03-20] MEDS: FAMOTIDINE 20 MG TABLET PO SCH (09:03)
[2020-03-20] MEDS: SIMETHICONE 80 MG TAB.CHEW (FP) PO SCH ×4 (09:03→21:31)
[2020-03-20] MEDS: POSACONAZOLE PO SCH (09:03)
[2020-03-20] MEDS ORDERED: PT OWN MED DRAWER 7, Y5N ONE (09:16)
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
[2020-03-20] MEDS ORDERED: ONDANSETRON 8 MG TABLET (FP) PO PRN (10:28)
[2020-03-20] MEDS ORDERED: ONDANSETRON 4 MG TABLET PO ONE (11:05)
[2020-03-20] MEDS: HYDROmorphone HCL 2 MG TABLET PO PRN ×2 (11:14→21:32)
[2020-03-20] MEDS: COLLAGENASE CLOSTRIDIUM HIST. 30 GRAMS TUBE TP SCH (13:53)
[2020-03-20] MEDS: CYCLOBENZAPRINE HCL 5 MG TABLET PO SCH ×3 (13:54→21:32)
[2020-03-20] MEDS: GABAPENTIN 100 MG CAPSULE PO SCH ×2 (13:54→21:32)
[2020-03-21] MEDS: CYCLOBENZAPRINE HCL 5 MG TABLET PO SCH (05:58)
[2020-03-21] MEDS: DOCUSATE SODIUM 100 MG CAPSULE (FP) PO SCH ×3 (05:58→21:34)
[2020-03-21] MEDS: GABAPENTIN 100 MG CAPSULE PO SCH ×3 (05:58→21:34)
[2020-03-21] MEDS: OXYBUTYNIN CHLORIDE 5 MG TABLET PO SCH ×3 (05:58→21:34)
[2020-03-21] MEDS: HYDROmorphone HCL 2 MG TABLET PO PRN ×3 (05:59→21:34)
[2020-03-21 06:44] LABS: BASO % 0.6 % (0-2.0); EOS % 5.7 % (0-4.5); HEMATOCRIT 24.6 % (32.4-45.2); HEMOGLOBIN 7.7 GM/dL (10.7-15.3); LYMPH % 30.5 % (8-40); MCH 21.2 pg (25.7-33.7); MCHC 31.1 g/dl (32.0-36.0); MEAN CELL VOLUME 68.2 fl (80-96); MEAN PLT VOLUME 7.5 fl (7.5-11.1); NEUT % 52.2 % (42.8-82.8); PLATELET COUNT 397 K/MM3 (134-434); RDW 19.5 % (11.6-15.6)
[2020-03-21 07:05] LABS: ALBUMIN 2.1 g/dl (3.4-5.0); BILIRUBIN,TOTAL 0.2 mg/dL (0.2-1); BLOOD UREA NITROGEN 8.9 mg/dL (7-18); CALCIUM 8.3 mg/dL (8.5-10.1); CREATININE 0.3 mg/dL (0.55-1.3)
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
[2020-03-21] MEDS: AMINO ACIDS/PROTEIN HYDROLYS 30 ML LIQUID.PKT PO SCH ×2 (09:19→17:05)
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
[2020-03-21] MEDS: SIMETHICONE 80 MG TAB.CHEW (FP) PO SCH ×4 (10:17→21:34)
[2020-03-21] MEDS: PANTOPRAZOLE 40 MG TABLET PO SCH (10:18)
[2020-03-21] MEDS: ASCORBIC ACID 500 MG TABLET (FP) PO SCH (10:18)
[2020-03-21] MEDS: FERROUS SO4 325 MG TABLET (FP) PO SCH (10:18)
[2020-03-21] MEDS: LACTOBACILLUS ACIDOPHILUS 1 TABLET PO SCH (10:18)
[2020-03-21] MEDS: POTASSIUM CHLORIDE TABS 20 MEQ TABLET.ER (FP) PO SCH (10:18)
[2020-03-21] MEDS: DICYCLOMINE HCL 10 MG CAPSULE PO SCH ×2 (10:19→21:34)
[2020-03-21] MEDS: POSACONAZOLE PO SCH (10:19)
[2020-03-21] MEDS: POLYETHYLENE GLYCOL 3350 119 GM BTL PO SCH (10:20)
[2020-03-21] MEDS: COLLAGENASE CLOSTRIDIUM HIST. 30 GRAMS TUBE TP SCH (10:20)
[2020-03-21] MEDS: FAMOTIDINE 20 MG TABLET PO SCH (10:20)
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
[2020-03-21 14:21] LABS: ANISOCYTOSIS 1+; MACROCYTOSIS 0; PLATELET ESTIMATE NORMAL
[2020-03-21] MEDS: CYCLOBENZAPRINE HCL 5 MG TABLET PO PRN ×2 (17:54→21:34)
[2020-03-21] MEDS ORDERED: PT OWN MED DRAWER 7, Y5N ONE (20:17)
[2020-03-21] MEDS: ZOLPIDEM TARTRATE 5 MG TABLET PO PRN (21:34)
[2020-03-22] MEDS: DOCUSATE SODIUM 100 MG CAPSULE (FP) PO SCH ×3 (06:05→21:45)
[2020-03-22] MEDS: GABAPENTIN 100 MG CAPSULE PO SCH ×3 (06:05→21:46)
[2020-03-22] MEDS: OXYBUTYNIN CHLORIDE 5 MG TABLET PO SCH ×3 (06:05→21:45)
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
[2020-03-22] MEDS: AMINO ACIDS/PROTEIN HYDROLYS 30 ML LIQUID.PKT PO SCH ×2 (08:39→17:57)
[2020-03-22] MEDS ORDERED: PT OWN MED DRAWER 7, Y5N ONE ×3 (09:17→21:48)
[2020-03-22] MEDS: SIMETHICONE 80 MG TAB.CHEW (FP) PO SCH ×4 (09:19→21:45)
[2020-03-22] MEDS: FAMOTIDINE 20 MG TABLET PO SCH (09:19)
[2020-03-22] MEDS: POTASSIUM CHLORIDE TABS 20 MEQ TABLET.ER (FP) PO SCH (09:19)
[2020-03-22] MEDS: LACTOBACILLUS ACIDOPHILUS 1 TABLET PO SCH (09:19)
[2020-03-22] MEDS: FERROUS SO4 325 MG TABLET (FP) PO SCH (09:19)
[2020-03-22] MEDS: PANTOPRAZOLE 40 MG TABLET PO SCH (09:19)
[2020-03-22] MEDS: ASCORBIC ACID 500 MG TABLET (FP) PO SCH (09:20)
[2020-03-22] MEDS: DICYCLOMINE HCL 10 MG CAPSULE PO SCH ×2 (09:21→21:49)
[2020-03-22] MEDS: POSACONAZOLE PO SCH (09:21)
[2020-03-22] MEDS: POLYETHYLENE GLYCOL 3350 119 GM BTL PO SCH (09:21)
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
[2020-03-22] MEDS: COLLAGENASE CLOSTRIDIUM HIST. 30 GRAMS TUBE TP SCH (13:04)
[2020-03-22] MEDS: CYCLOBENZAPRINE HCL 5 MG TABLET PO PRN ×2 (17:03→21:46)
[2020-03-22] MEDS: ZOLPIDEM TARTRATE 5 MG TABLET PO PRN (21:45)
[2020-03-23] MEDS: DOCUSATE SODIUM 100 MG CAPSULE (FP) PO SCH ×2 (05:17→13:28)
[2020-03-23] MEDS: OXYBUTYNIN CHLORIDE 5 MG TABLET PO SCH ×2 (05:18→13:28)
[2020-03-23] MEDS: GABAPENTIN 100 MG CAPSULE PO SCH ×2 (05:18→13:29)
[2020-03-23 07:19] VITALS: PULSE 67
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
[2020-03-23] MEDS: AMINO ACIDS/PROTEIN HYDROLYS 30 ML LIQUID.PKT PO SCH (08:11)
[2020-03-23] MEDS ORDERED: PT OWN MED DRAWER 7, Y5N ONE ×3 (08:48→09:17)
[2020-03-23] MEDS: PANTOPRAZOLE 40 MG TABLET PO SCH (09:01)
[2020-03-23] MEDS: DICYCLOMINE HCL 10 MG CAPSULE PO SCH (09:01)
[2020-03-23] MEDS: LACTOBACILLUS ACIDOPHILUS 1 TABLET PO SCH (09:01)
[2020-03-23] MEDS: POTASSIUM CHLORIDE TABS 20 MEQ TABLET.ER (FP) PO SCH (09:01)
[2020-03-23] MEDS: ASCORBIC ACID 500 MG TABLET (FP) PO SCH (09:01)
[2020-03-23] MEDS: SIMETHICONE 80 MG TAB.CHEW (FP) PO SCH ×2 (09:01→13:29)
[2020-03-23] MEDS: FERROUS SO4 325 MG TABLET (FP) PO SCH (09:01)
[2020-03-23] MEDS: POLYETHYLENE GLYCOL 3350 119 GM BTL PO SCH (09:02)
[2020-03-23] MEDS: POSACONAZOLE PO SCH (09:02)
[2020-03-23] MEDS: COLLAGENASE CLOSTRIDIUM HIST. 30 GRAMS TUBE TP SCH (09:03)
[2020-03-23] MEDS: FAMOTIDINE 20 MG TABLET PO SCH (09:03)
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
[2020-03-23 15:07] VITALS: BP 131/69; TEMP 98.5
== END 2020-03-23 15:00 | disposition home health service (06) | DRG 186 ==
LOC: JER 14:52 → JERBED 17:04 → J8W 20:02
PROVIDERS: ADMIT Internal Medicine; ATTEND Internal Medicine
PROC: 0W9B30Z Drainage of Left Pleural Cavity with Drainage Device, Percutaneous Approach (ICD-10-PCS; principal; 2020-03-14)
DX: J90 Pleural effusion, not elsewhere classified (principal); R53.2 Functional quadriplegia; L89.154 Pressure ulcer of sacral region, stage 4; N39.0 Urinary tract infection, site not specified; T83.511A Infection and inflammatory reaction due to indwelling urethral catheter, initial encounter; G82.20 Paraplegia, unspecified; G89.29 Other chronic pain; D63.8 Anemia in other chronic diseases classified elsewhere; E83.42 Hypomagnesemia; E87.6 Hypokalemia; Z86.14 Personal history of Methicillin resistant Staphylococcus aureus infection; E78.5 Hyperlipidemia, unspecified; I10 Essential (primary) hypertension
CPT/HCPCS: 32557; 36415; 71045-TC-FY; 71250-TC; 72070-TC-FY; 72100-TC-FY; 76700-TC; 80053; 81003; 82042; 82150; 82550; 83615; 83735; 83880; 84100; 84478; 84484; 85025; 85610; 85730; 86850; 86900; 86901; 87070; 87075; 87077; 87086; 87102; 87116; 87186; 87205; 87206; 87210; 88108; 88305-TC; 93005; 93010; 99285-25; U0003

== ENCOUNTER 2022-07-23 12:43 | Inpatient (IN) | payer OTHER ==
[2022-07-23] MEDS ORDERED: ACETAMINOPHEN 1000 MG/100 ML BAG IVPB ONE (13:57)
[2022-07-23] MEDS ORDERED: ACETAMINOPHEN INJECTION 100 ML IVPB ONE (14:16)
[2022-07-23 15:15] LABS: BASO % 0.6 % (0-2.0); EOS % 4.5 % (0-4.5); HEMATOCRIT 24.9 % (32.4-45.2); HEMOGLOBIN 7.8 GM/dL (10.7-15.3); LYMPH % 25.8 % (8-40); MCH 21.1 pg (25.7-33.7); MCHC 31.4 g/dl (32.0-36.0); MEAN PLT VOLUME 7.1 fl (7.5-11.1); MONO % 8.3 % (3.8-10.2); NEUT % 60.8 % (42.8-82.8); PLATELET COUNT 317 10^3/uL (134-434); RBC 3.72 M/mm3 (3.60-5.2); RDW 19.6 % (11.6-15.6); WHITE BLOOD COUNT 8.3 K/mm3 (4.0-10.0)
[2022-07-23 15:38] LABS: ALBUMIN 2.2 g/dl (3.4-5.0); BLOOD UREA NITROGEN 6.4 mg/dL (7-18); CALCIUM 8.3 mg/dL (8.5-10.1)
[2022-07-23 15:41] LABS: CREATININE 0.4 mg/dL (0.55-1.3)
[2022-07-23 15:42] LABS: BILIRUBIN,TOTAL 0.1 mg/dL (0.2-1)
[2022-07-23 15:43] LABS: TOT PROT 6.7 g/dl (6.4-8.2)
[2022-07-23] MEDS ORDERED: HYDROmorphone HCL CARPU-JECT 2 MG/1 ML DISP.SYRIN IVPUSH ONE (15:53)
[2022-07-23 16:03] LABS: ANISOCYTOSIS 1+; MACROCYTOSIS 0
[2022-07-23] MEDS ORDERED: HYDROmorphone HCl 2 MG/ML VIAL ONE (16:17)
[2022-07-23] MEDS ORDERED: ZOLPIDEM TARTRATE 5 MG TABLET PO PRN (18:32)
[2022-07-23] MEDS ORDERED: ONDANSETRON 4 MG/2 ML VIAL IVPUSH ONE (18:33)
[2022-07-23] MEDS ORDERED: ONDANSETRON 4 MG/2 ML VIAL ONE (19:53)
[2022-07-23] MEDS: PREGABALIN 100 MG CAPSULE PO SCH (23:03)
[2022-07-23] MEDS: AMINO ACIDS/PROTEIN HYDROLYS 30 ML LIQUID.PKT PO SCH ×2 (23:03→23:04)
[2022-07-24] MEDS ORDERED: IRON SUCROSE INJECTION 200 MG in SODIUM CHLORIDE 90 ML IVPB ONE (09:30)
[2022-07-24] MEDS: PREGABALIN 100 MG CAPSULE PO SCH ×2 (10:08→22:00)
[2022-07-24] MEDS: FAMOTIDINE 20 MG TABLET PO SCH (10:08)
[2022-07-24] MEDS: AMINO ACIDS/PROTEIN HYDROLYS 30 ML LIQUID.PKT PO SCH ×4 (10:08→22:25)
[2022-07-24] MEDS: ENOXAPARIN NA (PORCINE) 40 MG/0.4 ML DISP.SYRIN SQ SCH (10:08)
[2022-07-24] MEDS: POLYETHYLENE GLYCOL (HEALTHYLAX) 3350 17 GM PACKET PO SCH (10:09)
[2022-07-24] MEDS ORDERED: Methylnaltrexone Bromide 12 MG/0.6 ML KIT SQ ONE (14:15)
[2022-07-24] MEDS ORDERED: PEG 3350/NA SULF BICARB CL/KCL 4000 ML SOLN.RECON PO ONE (14:30)
[2022-07-24 16:27] LABS: HEMATOCRIT 24.8 % (32.4-45.2); HEMOGLOBIN 7.7 GM/dL (10.7-15.3); MCH 20.7 pg (25.7-33.7); MCHC 30.9 g/dl (32.0-36.0); MEAN CELL VOLUME 66.9 fl (80-96); MEAN PLT VOLUME 7.1 fl (7.5-11.1); PLATELET COUNT 366 10^3/uL (134-434); RDW 19.9 % (11.6-15.6); WHITE BLOOD COUNT 7.8 K/mm3 (4.0-10.0)
[2022-07-24 16:55] LABS: BLOOD UREA NITROGEN 8.9 mg/dL (7-18); CALCIUM 8.2 mg/dL (8.5-10.1)
[2022-07-24 16:56] LABS: ALBUMIN 2.3 g/dl (3.4-5.0)
[2022-07-24 16:58] LABS: CREATININE 0.5 mg/dL (0.55-1.3)
[2022-07-24 17:00] LABS: BILIRUBIN,TOTAL 0.1 mg/dL (0.2-1); TOT PROT 6.7 g/dl (6.4-8.2)
[2022-07-25] MEDS: HYDROmorphone HCL 2 MG TABLET PO PRN ×3 (01:32→18:58)
[2022-07-25] MEDS: AMINO ACIDS/PROTEIN HYDROLYS 30 ML LIQUID.PKT PO SCH ×4 (09:04→21:27)
[2022-07-25] MEDS: POLYETHYLENE GLYCOL (HEALTHYLAX) 3350 17 GM PACKET PO SCH (09:04)
[2022-07-25] MEDS: PREGABALIN 100 MG CAPSULE PO SCH ×2 (09:05→21:27)
[2022-07-25] MEDS: ENOXAPARIN NA (PORCINE) 40 MG/0.4 ML DISP.SYRIN SQ SCH (09:05)
[2022-07-25] MEDS: FAMOTIDINE 20 MG TABLET PO SCH (09:05)
[2022-07-25] MEDS ORDERED: PEG 3350/NA SULF BICARB CL/KCL 4000 ML SOLN.RECON PO ONE (10:00)
[2022-07-25 10:30] LABS: HEMATOCRIT 23.1 % (32.4-45.2); HEMOGLOBIN 7.2 GM/dL (10.7-15.3); MCH 20.5 pg (25.7-33.7); MEAN PLT VOLUME 7.4 fl (7.5-11.1); PLATELET COUNT 341 10^3/uL (134-434); RDW 19.4 % (11.6-15.6); WHITE BLOOD COUNT 10.4 K/mm3 (4.0-10.0)
[2022-07-25 11:00] LABS: ALBUMIN 2.1 g/dl (3.4-5.0); BLOOD UREA NITROGEN 12.8 mg/dL (7-18); CALCIUM 7.9 mg/dL (8.5-10.1)
[2022-07-25 11:01] LABS: CREATININE 0.4 mg/dL (0.55-1.3)
[2022-07-25 11:02] LABS: BILIRUBIN,TOTAL 0.2 mg/dL (0.2-1)
[2022-07-25 11:03] LABS: TOT PROT 6.2 g/dl (6.4-8.2)
[2022-07-25] MEDS ORDERED: Methylnaltrexone Bromide 12 MG/0.6 ML KIT SQ ONE (12:00)
[2022-07-25] MEDS: POTASSIUM CHLORIDE TABS 20 MEQ TABLET.ER (FP) PO SCH (18:55)
[2022-07-26] MEDS ORDERED: ACETAMINOPHEN 325 MG TABLET (FP) PO ONE ×2 (01:35)
[2022-07-26 04:50] LABS: EPI CELLS 29 /uL (0-25.1); HYALINE CASTS 5 /uL (0-3.1); URINE APPEARANCE TURBID; URINE BACTERIA >9,000 /uL (0-1359); URINE BILIRUBIN NEGATIVE (NEGATIVE); URINE COLOR YELLOW; URINE GLUCOSE (UA) NEGATIVE (NEGATIVE); URINE KETONE NEGATIVE (NEGATIVE); URINE LEUK ESTERASE 3+ (NEGATIVE); URINE NITRITE NEGATIVE (NEGATIVE); URINE PROTEIN 1+ (NEGATIVE); URINE RBC 154 /uL (0-23.9); URINE UROBILINOGEN 0.2 mg/dL (0.2-1.0); URINE WBC 905 /uL (0-25.8)
[2022-07-26 07:17] LABS: URINE CRYSTALS NONE SEEN /hpf
[2022-07-26] MEDS: HYDROmorphone HCL 2 MG TABLET PO PRN (09:03)
[2022-07-26] MEDS: POTASSIUM CHLORIDE TABS 20 MEQ TABLET.ER (FP) PO SCH (09:03)
[2022-07-26] MEDS: PREGABALIN 100 MG CAPSULE PO SCH ×2 (09:03→22:12)
[2022-07-26] MEDS: FAMOTIDINE 20 MG TABLET PO SCH (09:04)
[2022-07-26] MEDS: AMINO ACIDS/PROTEIN HYDROLYS 30 ML LIQUID.PKT PO SCH ×5 (09:04→22:18)
[2022-07-26] MEDS: POLYETHYLENE GLYCOL (HEALTHYLAX) 3350 17 GM PACKET PO SCH (09:04)
[2022-07-26 09:58] LABS: BASO % 0.4 % (0-2.0); EOS % 5.3 % (0-4.5); HEMATOCRIT 23.6 % (32.4-45.2); HEMOGLOBIN 7.3 GM/dL (10.7-15.3); LYMPH % 22.9 % (8-40); MCH 20.8 pg (25.7-33.7); MCHC 30.9 g/dl (32.0-36.0); MEAN CELL VOLUME 67.1 fl (80-96); MEAN PLT VOLUME 7.1 fl (7.5-11.1); MONO % 10.2 % (3.8-10.2); NEUT % 61.2 % (42.8-82.8); PLATELET COUNT 338 10^3/uL (134-434); RBC 3.51 M/mm3 (3.60-5.2); RDW 19.8 % (11.6-15.6); WHITE BLOOD COUNT 10.6 K/mm3 (4.0-10.0)
[2022-07-26] MEDS ORDERED: PEG 3350/NA SULF BICARB CL/KCL 4000 ML SOLN.RECON PO ONE ×2 (10:00→22:22)
[2022-07-26 10:22] LABS: CALCIUM 8.4 mg/dL (8.5-10.1)
[2022-07-26 10:23] LABS: ALBUMIN 2.1 g/dl (3.4-5.0); BLOOD UREA NITROGEN 13.1 mg/dL (7-18)
[2022-07-26 10:26] LABS: CREATININE 0.3 mg/dL (0.55-1.3)
[2022-07-26 10:27] LABS: TOT PROT 6.4 g/dl (6.4-8.2)
[2022-07-26 10:28] LABS: BILIRUBIN,TOTAL 0.3 mg/dL (0.2-1)
[2022-07-26] MEDS: ENOXAPARIN NA (PORCINE) 40 MG/0.4 ML DISP.SYRIN SQ SCH (11:00)
[2022-07-26] MEDS: AZTREONAM 1 GM in DEXTROSE 5%-WATER - 50 ML IVPB SCH ×2 (14:24→17:11)
[2022-07-26] MEDS ORDERED: BISACODYL 5 MG TABLET.DR (FP) PO ONE (20:00)
[2022-07-26] MEDS ORDERED: ACETAMINOPHEN 1000 MG/100 ML BAG IVPB ONE (22:00)
[2022-07-27] MEDS ORDERED: ONDANSETRON 4 MG/2 ML VIAL IVPUSH ONE (01:16)
[2022-07-27] MEDS: AZTREONAM 1 GM in DEXTROSE 5%-WATER - 50 ML IVPB SCH ×4 (01:35→18:11)
[2022-07-27] MEDS ORDERED: ACETAMINOPHEN 1000 MG/100 ML BAG IVPB PRN (04:00)
[2022-07-27 09:09] LABS: BASO % 0.4 % (0-2.0); EOS % 3.5 % (0-4.5); HEMATOCRIT 23.4 % (32.4-45.2); HEMOGLOBIN 7.2 GM/dL (10.7-15.3); LYMPH % 18.9 % (8-40); MCH 20.7 pg (25.7-33.7); MEAN CELL VOLUME 66.8 fl (80-96); MEAN PLT VOLUME 7.2 fl (7.5-11.1); MONO % 9.5 % (3.8-10.2); NEUT % 67.7 % (42.8-82.8); PLATELET COUNT 344 10^3/uL (134-434); RDW 19.7 % (11.6-15.6); WHITE BLOOD COUNT 9.9 K/mm3 (4.0-10.0)
[2022-07-27 09:18] LABS: INR 1.33 (0.83-1.09); PROTHROMBIN TIME (PATIENT) 15.4 SEC (9.7-13.0)
[2022-07-27 09:33] LABS: CALCIUM 8.4 mg/dL (8.5-10.1)
[2022-07-27 09:34] LABS: BLOOD UREA NITROGEN 9.7 mg/dL (7-18)
[2022-07-27 09:37] LABS: CREATININE 0.3 mg/dL (0.55-1.3)
[2022-07-27] MEDS: ENOXAPARIN NA (PORCINE) 40 MG/0.4 ML DISP.SYRIN SQ SCH (10:00)
[2022-07-27 10:29] LABS: ANISOCYTOSIS 2+; MACROCYTOSIS 0; TARGET CELLS 1+
[2022-07-27] MEDS: MULTIVITAMINS (DAILY MVI) TABLET (FP) PO SCH (10:43)
[2022-07-27] MEDS: ASCORBIC ACID 500 MG TABLET (FP) PO SCH ×2 (10:43→21:09)
[2022-07-27] MEDS: POTASSIUM CHLORIDE TABS 20 MEQ TABLET.ER (FP) PO SCH (10:43)
[2022-07-27] MEDS: AMINO ACIDS/PROTEIN HYDROLYS 30 ML LIQUID.PKT PO SCH ×4 (10:43→21:09)
[2022-07-27] MEDS: POLYETHYLENE GLYCOL (HEALTHYLAX) 3350 17 GM PACKET PO SCH (10:43)
[2022-07-27] MEDS: FAMOTIDINE 20 MG TABLET PO SCH (10:43)
[2022-07-27] MEDS: PREGABALIN 100 MG CAPSULE PO SCH ×2 (10:43→21:08)
[2022-07-27 21:20] VITALS: BMI 35.8
[2022-07-28] MEDS: AZTREONAM 1 GM in DEXTROSE 5%-WATER - 50 ML IVPB SCH ×3 (01:42→18:16)
[2022-07-28] MEDS ORDERED: ACETAMINOPHEN 325 MG TABLET (FP) PO PRN (08:27)
[2022-07-28] MEDS: ASCORBIC ACID 500 MG TABLET (FP) PO SCH ×2 (09:14→21:27)
[2022-07-28] MEDS: POTASSIUM CHLORIDE TABS 20 MEQ TABLET.ER (FP) PO SCH (09:14)
[2022-07-28] MEDS: POLYETHYLENE GLYCOL (HEALTHYLAX) 3350 17 GM PACKET PO SCH ×2 (09:14→21:27)
[2022-07-28] MEDS: FAMOTIDINE 20 MG TABLET PO SCH (09:14)
[2022-07-28] MEDS: PREGABALIN 100 MG CAPSULE PO SCH ×2 (09:14→21:27)
[2022-07-28] MEDS: MULTIVITAMINS (DAILY MVI) TABLET (FP) PO SCH (09:14)
[2022-07-28] MEDS: AMINO ACIDS/PROTEIN HYDROLYS 30 ML LIQUID.PKT PO SCH ×4 (09:15→21:27)
[2022-07-28] MEDS: ENOXAPARIN NA (PORCINE) 40 MG/0.4 ML DISP.SYRIN SQ SCH (11:18)
[2022-07-29] MEDS: AZTREONAM 1 GM in DEXTROSE 5%-WATER - 50 ML IVPB SCH ×3 (01:21→21:00)
[2022-07-29] MEDS ORDERED: diphenhydrAMINE HCL 25 MG CAPSULE (FP) PO ONE (01:39)
[2022-07-29] MEDS: PREGABALIN 100 MG CAPSULE PO SCH ×2 (10:28→21:31)
[2022-07-29] MEDS: AMINO ACIDS/PROTEIN HYDROLYS 30 ML LIQUID.PKT PO SCH ×4 (10:29→21:31)
[2022-07-29] MEDS: ENOXAPARIN NA (PORCINE) 40 MG/0.4 ML DISP.SYRIN SQ SCH (10:29)
[2022-07-29] MEDS: MULTIVITAMINS (DAILY MVI) TABLET (FP) PO SCH (10:30)
[2022-07-29] MEDS: FAMOTIDINE 20 MG TABLET PO SCH (10:30)
[2022-07-29] MEDS: POTASSIUM CHLORIDE TABS 20 MEQ TABLET.ER (FP) PO SCH ×2 (10:30→17:17)
[2022-07-29] MEDS: ASCORBIC ACID 500 MG TABLET (FP) PO SCH ×2 (10:31→21:31)
[2022-07-29] MEDS: POLYETHYLENE GLYCOL (HEALTHYLAX) 3350 17 GM PACKET PO SCH ×2 (10:46→21:31)
[2022-07-29 13:10] LABS: BASO % 0.3 % (0-2.0); EOS % 6.5 % (0-4.5); HEMATOCRIT 20.1 % (32.4-45.2); MCH 21.4 pg (25.7-33.7); MCHC 31.9 g/dl (32.0-36.0); MEAN PLT VOLUME 7.3 fl (7.5-11.1); MONO % 10.2 % (3.8-10.2); PLATELET COUNT 329 10^3/uL (134-434); RDW 20.1 % (11.6-15.6)
[2022-07-29 13:20] LABS: HEMOGLOBIN 6.4 GM/dL (10.7-15.3)
[2022-07-29 13:26] LABS: ALBUMIN 1.7 g/dl (3.4-5.0); BLOOD UREA NITROGEN 11.3 mg/dL (7-18); CALCIUM 7.7 mg/dL (8.5-10.1)
[2022-07-29 13:29] LABS: CREATININE 0.2 mg/dL (0.55-1.3)
[2022-07-29 13:31] LABS: BILIRUBIN,TOTAL 0.3 mg/dL (0.2-1); TOT PROT 5.7 g/dl (6.4-8.2)
[2022-07-29] MEDS ORDERED: BISACODYL 5 MG TABLET.DR (FP) PO ONE (16:00)
[2022-07-29] MEDS ORDERED: PEG 3350/NA SULF BICARB CL/KCL 4000 ML SOLN.RECON PO ONE (17:00)
[2022-07-30] MEDS: AZTREONAM 1 GM in DEXTROSE 5%-WATER - 50 ML IVPB SCH ×3 (03:45→21:40)
[2022-07-30] MEDS: ASCORBIC ACID 500 MG TABLET (FP) PO SCH ×2 (09:43→21:40)
[2022-07-30] MEDS: FAMOTIDINE 20 MG TABLET PO SCH (09:43)
[2022-07-30] MEDS: MULTIVITAMINS (DAILY MVI) TABLET (FP) PO SCH (09:43)
[2022-07-30] MEDS: PREGABALIN 100 MG CAPSULE PO SCH ×2 (09:43→21:40)
[2022-07-30] MEDS: POTASSIUM CHLORIDE TABS 20 MEQ TABLET.ER (FP) PO SCH (09:45)
[2022-07-30 09:48] LABS: INR 1.28 (0.83-1.09); PROTHROMBIN TIME (PATIENT) 14.8 SEC (9.7-13.0)
[2022-07-30] MEDS: AMINO ACIDS/PROTEIN HYDROLYS 30 ML LIQUID.PKT PO SCH ×4 (09:49→21:40)
[2022-07-30] MEDS: POLYETHYLENE GLYCOL (HEALTHYLAX) 3350 17 GM PACKET PO SCH ×2 (09:49→21:40)
[2022-07-30 09:51] LABS: BASO % 0.4 % (0-2.0); EOS % 5.7 % (0-4.5); HEMATOCRIT 24.8 % (32.4-45.2); HEMOGLOBIN 7.9 GM/dL (10.7-15.3); LYMPH % 31.4 % (8-40); MCH 22.3 pg (25.7-33.7); MCHC 31.9 g/dl (32.0-36.0); MEAN PLT VOLUME 7.6 fl (7.5-11.1); MONO % 10.2 % (3.8-10.2); NEUT % 52.3 % (42.8-82.8); PLATELET COUNT 347 10^3/uL (134-434); RBC 3.55 M/mm3 (3.60-5.2); RDW 22.8 % (11.6-15.6); WHITE BLOOD COUNT 7.6 K/mm3 (4.0-10.0)
[2022-07-30 10:15] LABS: CREATININE 0.3 mg/dL (0.55-1.3)
[2022-07-30] MEDS ORDERED: MIDAZOLAM HCL 2 MG/2 ML SINGLE DOSE VIAL ONE (11:16)
[2022-07-30] MEDS ORDERED: TETRACAINE/BENZOCAINE/BUTAMBEN 20 GM SPR TP ONE (11:16)
[2022-07-31] MEDS: AZTREONAM 1 GM in DEXTROSE 5%-WATER - 50 ML IVPB SCH ×3 (04:48→21:56)
[2022-07-31] MEDS: POLYETHYLENE GLYCOL (HEALTHYLAX) 3350 17 GM PACKET PO SCH ×2 (10:20→21:58)
[2022-07-31] MEDS: FAMOTIDINE 20 MG TABLET PO SCH (10:20)
[2022-07-31] MEDS: ASCORBIC ACID 500 MG TABLET (FP) PO SCH ×2 (10:20→21:58)
[2022-07-31] MEDS: MULTIVITAMINS (DAILY MVI) TABLET (FP) PO SCH (10:20)
[2022-07-31] MEDS: PREGABALIN 100 MG CAPSULE PO SCH ×2 (10:20→21:57)
[2022-07-31] MEDS: AMINO ACIDS/PROTEIN HYDROLYS 30 ML LIQUID.PKT PO SCH ×4 (10:21→21:58)
[2022-07-31] MEDS: POTASSIUM CHLORIDE TABS 20 MEQ TABLET.ER (FP) PO SCH (10:21)
[2022-07-31] MEDS: ENOXAPARIN NA (PORCINE) 40 MG/0.4 ML DISP.SYRIN SQ SCH (10:21)
[2022-07-31] MEDS: ZINC SULFATE 220 MG CAPSULE (FP) PO SCH (13:20)
[2022-08-01] MEDS: AZTREONAM 1 GM in DEXTROSE 5%-WATER - 50 ML IVPB SCH ×3 (05:15→20:00)
[2022-08-01] MEDS: PREGABALIN 100 MG CAPSULE PO SCH ×2 (09:14→21:21)
[2022-08-01] MEDS: POLYETHYLENE GLYCOL (HEALTHYLAX) 3350 17 GM PACKET PO SCH ×2 (09:14→21:20)
[2022-08-01] MEDS: ZINC SULFATE 220 MG CAPSULE (FP) PO SCH (09:14)
[2022-08-01] MEDS: AMINO ACIDS/PROTEIN HYDROLYS 30 ML LIQUID.PKT PO SCH ×4 (09:15→21:20)
[2022-08-01] MEDS: ASCORBIC ACID 500 MG TABLET (FP) PO SCH ×2 (09:15→21:21)
[2022-08-01] MEDS: FAMOTIDINE 20 MG TABLET PO SCH (09:15)
[2022-08-01] MEDS: ENOXAPARIN NA (PORCINE) 40 MG/0.4 ML DISP.SYRIN SQ SCH (09:15)
[2022-08-01] MEDS: MULTIVITAMINS (DAILY MVI) TABLET (FP) PO SCH (09:15)
[2022-08-01] MEDS: POTASSIUM CHLORIDE TABS 20 MEQ TABLET.ER (FP) PO SCH (09:18)
[2022-08-01 10:06] LABS: HEMATOCRIT 26.2 % (32.4-45.2); HEMOGLOBIN 8.2 GM/dL (10.7-15.3); MCH 22.2 pg (25.7-33.7); MCHC 31.4 g/dl (32.0-36.0); MEAN CELL VOLUME 70.8 fl (80-96); MEAN PLT VOLUME 7.6 fl (7.5-11.1); PLATELET COUNT 350 10^3/uL (134-434); RDW 23.2 % (11.6-15.6); WHITE BLOOD COUNT 6.7 K/mm3 (4.0-10.0)
[2022-08-01 10:50] LABS: ALBUMIN 1.8 g/dl (3.4-5.0); BLOOD UREA NITROGEN 7.7 mg/dL (7-18); CALCIUM 8.4 mg/dL (8.5-10.1)
[2022-08-01 10:52] LABS: CREATININE 0.4 mg/dL (0.55-1.3)
[2022-08-01 10:55] LABS: BILIRUBIN,TOTAL 0.2 mg/dL (0.2-1); TOT PROT 6.2 g/dl (6.4-8.2)
[2022-08-01] MEDS ORDERED: SENNOSIDES 8.8 MG/5 ML SYRUP PO SCH (22:00)
[2022-08-02] MEDS: AZTREONAM 1 GM in DEXTROSE 5%-WATER - 50 ML IVPB SCH (04:07)
[2022-08-02 04:42] VITALS: RESP 18
[2022-08-02 08:51] VITALS: BP 103/59; PULSE 88; TEMP 98
[2022-08-02] MEDS: POTASSIUM CHLORIDE TABS 20 MEQ TABLET.ER (FP) PO SCH (09:09)
[2022-08-02] MEDS: ENOXAPARIN NA (PORCINE) 40 MG/0.4 ML DISP.SYRIN SQ SCH (09:09)
[2022-08-02] MEDS: FAMOTIDINE 20 MG TABLET PO SCH (09:09)
[2022-08-02] MEDS: ASCORBIC ACID 500 MG TABLET (FP) PO SCH (09:09)
[2022-08-02] MEDS: MULTIVITAMINS (DAILY MVI) TABLET (FP) PO SCH (09:10)
[2022-08-02] MEDS: POLYETHYLENE GLYCOL (HEALTHYLAX) 3350 17 GM PACKET PO SCH (09:10)
[2022-08-02] MEDS: ZINC SULFATE 220 MG CAPSULE (FP) PO SCH (09:10)
[2022-08-02] MEDS: PREGABALIN 100 MG CAPSULE PO SCH (09:10)
[2022-08-02] MEDS: AMINO ACIDS/PROTEIN HYDROLYS 30 ML LIQUID.PKT PO SCH ×2 (09:14→13:01)
== END 2022-08-02 15:38 | disposition home health service (06) | DRG 391 ==
LOC: JER 12:43 → JERBED 15:22 → J6S 21:53 → OBSVTOIN 07-24 08:38
PROVIDERS: ADMIT Internal Medicine; ATTEND Internal Medicine
PROC: 30233N1 Transfusion of Nonautologous Red Blood Cells into Peripheral Vein, Percutaneous Approach (ICD-10-PCS; 2022-07-29)
PROC: 0DJ08ZZ Inspection of Upper Intestinal Tract, Via Natural or Artificial Opening Endoscopic (ICD-10-PCS; 2022-07-30)
PROC: 0DBH8ZX Excision of Cecum, Via Natural or Artificial Opening Endoscopic, Diagnostic (ICD-10-PCS; principal; 2022-07-30 11:00)
DX: K59.00 Constipation, unspecified (principal); L89.314 Pressure ulcer of right buttock, stage 4; S72.001A Fracture of unspecified part of neck of right femur, initial encounter for closed fracture; S72.002A Fracture of unspecified part of neck of left femur, initial encounter for closed fracture; N39.0 Urinary tract infection, site not specified; G82.20 Paraplegia, unspecified; T83.010A Breakdown (mechanical) of cystostomy catheter, initial encounter; Q43.8 Other specified congenital malformations of intestine; R10.9 Unspecified abdominal pain; N31.9 Neuromuscular dysfunction of bladder, unspecified; K80.20 Calculus of gallbladder without cholecystitis without obstruction; I10 Essential (primary) hypertension; D50.9 Iron deficiency anemia, unspecified; D12.0 Benign neoplasm of cecum; K64.8 Other hemorrhoids; K44.9 Diaphragmatic hernia without obstruction or gangrene; X58.XXXA Exposure to other specified factors, initial encounter; Y93.9 Activity, unspecified; Y92.89 Other specified places as the place of occurrence of the external cause; Y99.9 Unspecified external cause status; E66.9 Obesity, unspecified; Z68.35 Body mass index [BMI] 35.0-35.9, adult; K21.9 Gastro-esophageal reflux disease without esophagitis
CPT/HCPCS: 0241U-QW; 36415; 36430; 71045-TC-FY; 74177-TC; 76856-TC; 80048; 80053; 81003; 82607; 82728; 82746; 82977; 83540; 83550; 83615; 85025; 85027; 85610; 86850; 86900; 86901; 86922; 87040; 87086; 87186; 88305-TC; 93005; 93010; 99285-25; G0378; J1756; P9058; Q9967

== ENCOUNTER 2024-07-02 04:01 | Day surgery (SDC) | payer OTHER ==
[2024-06-30 11:50] VITALS: BMI 29.0
[2024-07-02] MEDS ORDERED: PROPOFOL 20 ML ONE (12:53)
[2024-07-02] MEDS ORDERED: LIDOCAINE HCL/PF 2% SDV 5ML VIAL ONE (12:54)
[2024-07-02] MEDS ORDERED: MIDAZOLAM HCL 2 MG/2 ML SINGLE DOSE VIAL ONE ×2 (13:27→13:39)
[2024-07-02] MEDS ORDERED: CLINDAMYCIN PHOSPHATE 300 MG/2 ML VIAL ONE ×2 (13:27→13:30)
[2024-07-02] MEDS ORDERED: KETAMINE HCL 200 MG/20 ML VIAL ONE (13:37)
[2024-07-02] MEDS: CLINDAMYCIN 600 MG PREMIX BAG IVPB ONE ×3 (13:40)
[2024-07-02] MEDS ORDERED: SODIUM CHLORIDE 1,000 ML IV SCH (14:15)
[2024-07-02 16:14] VITALS: RESP 16
[2024-07-02 16:19] VITALS: BP 118/62; PULSE 83; TEMP 97.1
== END 2024-07-02 16:10 | disposition home or self-care (01) ==
LOC: JASU-SURG 04:01
PROVIDERS: ATTEND Urology
PROC: 0TR Urinary System, Replacement (ICD-10-PCS; principal; 2024-07-02 12:00)
DX: R31.0 Gross hematuria (principal); N31.9 Neuromuscular dysfunction of bladder, unspecified; N39.41 Urge incontinence
CPT/HCPCS: 94760